=== PATIENT | female | born 1950 | race Caucasian/White ===

== ENCOUNTER 2019-05-23 10:47 | Emergency (ER) | payer OTHER ==
--- OUTSIDE RECORDS SUMMARY | 2019-05-23 10:50 | XMS REPORT | Continuity of Care Document ---
:1950 Author Organization [facility] [employer] Care Team Providers Name Role Phone [employer] Unavailable Unavailable Problems No Data Provided for This Section Medications No Data Provided for This Section Allergies, Adverse Reactions, Alerts No Known Medication Allergies Immunizations No Data Provided for This Section Results No Data Provided for This Section Pathology Reports No Data Provided for This Section Diagnostic Reports No Data Provided for This Section Consultation Notes No Data Provided for This Section Discharge Summaries No Data Provided for This Section History and Physicals No Data Provided for This Section Vital Signs No Data Provided for This Section Encounters Location Location Encounter Encounter Reason Attending ADM DC Status Source Details Type Number For Provider Date Date Visit Outpatient [id number] [place] 08/12 Active [facility] [place] Procedures No Data Provided for This Section Assessment and Plan No Data Provided for This Section Plan of Care No Data Provided for This Section Social History No Data Provided for This Section Family History No Data Provided for This Section Advance Directives No Data Provided for This Section Functional Status No Data Provided for This Section
--- NOTE | 2019-05-23 12:14 | RAD REPORT ---
EXAM DESCRIPTION: US - Extremity Venous Uni Ltd - 05/23/2019 12:05 pm CLINICAL HISTORY: Left leg pain and swelling COMPARISON: None. TECHNIQUE: Real-time sonographic evaluation of the left lower extremity deep venous system was perfo rmed. FINDINGS: Normal compressibility, flow augmentation, phasic flow and spontaneous flow are identified in the left lower extremity common femoral, superficial femoral, popliteal and posterior tibial vein s. No intraluminal filling defects seen. IMPRESSION: No DVT in the left lower extremity.
[2019-05-23 13:47] LABS: Absolute Lymphocytes (CBC) 2.4 K/uL (0.7-4.9); Basophils % 2.7 % (0-1.3); Hematocrit 39.1 % (36.0-45.0); Lymphocytes % 26.4 % (15.3-44.8); MPV 7.5 fL (7.6-11.3); RBC Red Blood Cell Count 4.51 M/uL (3.86-4.86)
[2019-05-23 14:00] LABS: Potassium 4.1 mmol/L (3.5-5.1)
[2019-05-23] MEDS ORDERED: DIPHENHYDRAMINE 25 MG TAB/CAP ONE (14:33)
--- NOTE | 2019-05-23 18:34 | ER ---
Nurse's Notes [facility] Name: Sherrill Delgado Age: 68 yrs Sex: Female : 1950 Arrival Date: 05/23/2019 Time: 10:50 Bed 7 Private MD: Diagnosis: Left leg swelling, left lateral neck, shoulder, ankle paresthesia - chronic Presentation: 05/23 11:12 Presenting complaint: Patient states: "I went to my doctor a week ago for my neck aj1 hurting real bad and I was coughing. He listened to my chest and said I have pneumonia. He sent me home and called me in medicine. I took 5 of the pills but it made my legs start hurting. Now my left ankle is all swollen and it feels like there's bug crawling inside my legs" Reports that she has not had any SOB outside of what she normally has with COPD. Breath sound with wheezes. Transition of care: patient was not received from another setting of care. Onset of symptoms was April 2019. Risk Assessment: Do you want to hurt yourself or someone else? Patient reports no desire to harm self or others. Initial Sepsis Screen: Does the patient meet any 2 criteria? RR > 20 per min. HR > 90 bpm. Yes Does the patient have a suspected source of infection? No. Patient's initial sepsis screen is negative. Care prior to arrival: None. 11:12 Method Of Arrival: Ambulatory aj1 11:12 Acuity: MAYDA 3 aj1 Triage Assessment: 11:15 General: Appears in no apparent distress. uncomfortable, Behavior is calm, cooperative, aj1 appropriate for age. Pain: Complains of pain in left leg and neck. Neuro: Level of Consciousness is awake, alert, obeys commands. Cardiovascular: Patient's skin is warm and dry. Respiratory: Airway is patent Respiratory effort is even, unlabored, Respiratory pattern is regular, symmetrical. Historical: - Allergies: 11:15 Codeine; aj1 - PMHx: 11:15 COPD; aj1 - Immunization history:: Adult Immunizations up to date. - Ebola Screening: : Patient denies travel to an Ebola-affected area in the 21 days before illness onset. - Social history:: Smoking status: Patient/guardian denies using tobacco. Screenin:24 Abuse screen: Denies threats or abuse. Denies injuries from another. Nutritional hb screening: No deficits noted. Tuberculosis screening: No symptoms or risk factors identified. Fall Risk None identified. Assessment: 12:15 General: Appears in no apparent distress. Behavior is calm, cooperative. Pain: Denies hb pain. Neuro: Level of Consciousness is awake, alert, obeys commands, Oriented to person, place, time, situation. Cardiovascular: Capillary refill < 3 seconds Patient's skin is warm and dry. Respiratory: Airway is patent Respiratory effort is even, unlabored, Respiratory pattern is regular, symmetrical. GI: No signs and/or symptoms were reported involving the gastrointestinal system. : No signs and/or symptoms were reported regarding the genitourinary system. EENT: No signs and/or symptoms were reported regarding the EENT system. Derm: Skin is intact, is healthy with good turgor. Musculoskeletal: BLE swelling. 13:00 Reassessment: Patient appears in no apparent distress at this time. No changes from hb previously documented assessment. Patient and/or family updated on plan of care and expected duration. Pain level reassessed. Patient is alert, oriented x 3, equal unlabored respirations, skin warm/dry/pink. 14:00 Reassessment: Patient appears in no apparent distress at this time. Patient and/or hb family updated on plan of care and expected duration. Pain level reassessed. Patient is alert, oriented x 3, equal unlabored respirations, skin warm/dry/pink. Vital Signs: 11:15 BP 137 / 92; Pulse 115; Resp 24; Temp 98.7; Pulse Ox 95% on R/A; Weight 80.29 kg (R); aj1 Height 5 ft. 4 in. (162.56 cm) (R); Pain 9/10; 13:26 BP 179 / 96; Pulse 113; Resp 20; Pulse Ox 95% on R/A; sv 14:17 BP 163 / 94; Pulse 111; Resp 20; Pulse Ox 96% ; sv 11:15 Body Mass Index 30.38 (80.29 kg, 162.56 cm) aj1 ED Course: 10:50 Patient arrived in ED. mr 11:15 Triage completed. aj1 11:15 Arm band placed on. aj1 12:04 Bryon Tracy MD is Attending Physician. kdr 12:07 Ultrasound completed. hr 12:24 Patient has correct armband on for positive identification. Bed in low position. Call hb light in reach. Side rails up X 1. 13:12 US Extremity Venous Unilateral Ltd Sent. sv 13:17 Lashawn Rao, RN is Primary Nurse. hb 13:17 Inserted saline lock: 22 gauge in right antecubital area, using aseptic technique. hb Blood collected. 14:00 No provider procedures requiring assistance completed. IV discontinued, intact, hb bleeding controlled, No redness/swelling at site. Pressure dressing applied. Administered Medications: 14:39 Drug: Benadryl 25 mg Route: PO; hb 14:39 Follow up: Response: Medication administered at discharge. hb Outcome: 14:00 Discharged to home ambulatory, with family. hb 14:00 Condition: stable 14:00 Discharge instructions given to patient, Instructed on discharge instructions, follow up and referral plans. medication usage, Demonstrated understanding of instructions, follow-up care, medications, Prescriptions given X 1. 14:20 Discharge ordered by MD. kdr 14:40 Patient left the ED. hb Signatures: Suellen Herbert RN RN aj1 Freida Coon RN RN sv Rittger, Kevin, MD MD kdr Rivera, Mary mr Abe, Tena Lashawn Rao, RN RN hb
--- NOTE | 2019-05-23 18:34 | EDPHYS ---
Physician Documentation [facility] Name: Sherrill Delgado Age: 68 yrs Sex: Female : 1950 Arrival Date: 05/23/2019 Time: 10:50 Bed 7 Private MD: ED Physician Bryon Tracy HPI: 05/23 14:50 This 68 yrs old Female presents to ER via Ambulatory with complaints of Leg kdr Swelling, Neck Problem. 14:51 The patient states that for about a month, she has had tingling (feels like hugs) in he kdr left ankle land left lateral neck. It come and goes in terms of intensity and sometimes keep her up at night. Especially the discomfort in her neck keeps her awake at night. She denies any injury or other precipitating event. She had seen Dr. Clark since onset and was diagnosed with pneumonia at the time and told to take Ibuprofen for her discomfort. She was also told to come back after she recovered from the pneumonia to this problem addressed if it still persisted. She tried to go to Dr. Clark office today but they were unable to see her so she came to the ED. Her s/s are not changing over time nut simply persist. She denies any other problems or associated symptoms. Onset: The symptoms/episode began/occurred gradually, 1 month(s) ago. Severity of symptoms: At their worst the symptoms were mild in the emergency department the symptoms are unchanged. The patient has not experienced similar symptoms in the past. The patient has been recently seen by a physician: the patient's primary care provider. Historical: - Allergies: 11:15 Codeine; aj1 - PMHx: 11:15 COPD; aj1 - Immunization history:: Adult Immunizations up to date. - Ebola Screening: : Patient denies travel to an Ebola-affected area in the 21 days before illness onset. - Social history:: Smoking status: Patient/guardian denies using tobacco. ROS: 14:51 Constitutional: Negative for fever, chills, and weight loss, Eyes: Negative for injury, kdr pain, redness, and discharge, ENT: Negative for injury, pain, and discharge, Neck: Negative for injury, pain, and swelling, Cardiovascular: Negative for chest pain, palpitations, and edema, Respiratory: Negative for shortness of breath, cough, wheezing, and pleuritic chest pain, Abdomen/GI: Negative for abdominal pain, nausea, vomiting, diarrhea, and constipation, Back: Negative for injury and pain, : Negative for injury, bleeding, discharge, and swelling, MS/Extremity: Negative for injury and deformity, Skin: Negative for injury, rash, and discoloration, Psych: Negative for depression, anxiety, suicide ideation, homicidal ideation, and hallucinations, Allergy/Immunology: Negative for hives, rash, and allergies, Endocrine: Negative for neck swelling, polydipsia, polyuria, polyphagia, and marked weight changes, Hematologic/Lymphatic: Negative for swollen nodes, abnormal bleeding, and unusual bruising. 14:51 MS/extremity: Positive for swelling, of the left leg. 14:51 Neuro: Positive for tingling, of the scalp, left trapezius, left lateral ankle and lateral aspect of left foot. Exam: 14:51 Constitutional: This is a well developed, well nourished patient who is awake, alert, kdr and in no acute distress. Head/Face: Normocephalic, atraumatic. Eyes: Pupils equal round and reactive to light, extra-ocular motions intact. Lids and lashes normal. Conjunctiva and sclera are non-icteric and not injected. Cornea within normal limits. Periorbital areas with no swelling, redness, or edema. Neck: Trachea midline, no thyromegaly or masses palpated, and no cervical lymphadenopathy. Supple, full range of motion without nuchal rigidity, or vertebral point tenderness. No Meningismus. Chest/axilla: Normal chest wall appearance and motion. Nontender with no deformity. No lesions are appreciated. Cardiovascular: Regular rate and rhythm with a normal S1 and S2. No gallops, murmurs, or rubs. Normal PMI, no JVD. No pulse deficits. Respiratory: Lungs have equal breath sounds bilaterally, clear to auscultation and percussion. No rales, rhonchi or wheezes noted. No increased work of breathing, no retractions or nasal flaring. Abdomen/GI: Soft, non-tender, with normal bowel sounds. No distension or tympany. No guarding or rebound. No evidence of tenderness throughout. Back: No spinal tenderness. No costovertebral tenderness. Full range of motion. Skin: Warm, dry with normal turgor. Normal color with no rashes, no lesions, and no evidence of cellulitis. MS/ Extremity: Pulses equal, no cyanosis. Neurovascular intact. Full, normal range of motion. Neuro: Awake and alert, GCS 15, oriented to person, place, time, and situation. Cranial nerves II-XII grossly intact. Motor strength 5/5 in all extremities. Sensory grossly intact. Cerebellar exam normal. Normal gait. The patient had no defineable neuro deficit Psych: Awake, alert, with orientation to person, place and time. Behavior, mood, and affect are within normal limits. Vital Signs: 11:15 BP 137 / 92; Pulse 115; Resp 24; Temp 98.7; Pulse Ox 95% on R/A; Weight 80.29 kg (R); aj1 Height 5 ft. 4 in. (162.56 cm) (R); Pain 9/10; 13:26 BP 179 / 96; Pulse 113; Resp 20; Pulse Ox 95% on R/A; sv 14:17 BP 163 / 94; Pulse 111; Resp 20; Pulse Ox 96% ; sv 11:15 Body Mass Index 30.38 (80.29 kg, 162.56 cm) aj MDM: 14:20 Patient medically screened. kdr 14:51 Data reviewed: vital signs, nurses notes, lab test result(s), radiologic studies. kdr Counseling: I had a detailed discussion with the patient and/or guardian regarding: the historical points, exam findings, and any diagnostic results supporting the discharge/admit diagnosis, lab results, radiology results, the need for outpatient follow up. 05/23 12:51 Order name: CBC with Diff kdr 05/23 12:51 Order name: Chem 7 kdr 05/23 11:18 Order name: Extremity Venous Unilateral Ltd [facility][1] Administered Medications: 14:39 Drug: Benadryl 25 mg Route: PO; hb 14:39 Follow up: Response: Medication administered at discharge. hb Disposition: 05/23/19 14:20 Discharged to Home. Impression: Left leg swelling, left lateral neck, shoulder, ankle paresthesia - chronic. - Condition is Stable. - Discharge Instructions: Paresthesia, [id number]. - Prescriptions for Benadryl 25 mg Oral Capsule - take 1 capsule by ORAL route every 6 hours As needed; 30 tablet. - Medication Reconciliation Form, Thank You Letter form. - Follow up: Private Physician; When: 2 - 3 days; Reason: If symptoms return, Further diagnostic work-up, Recheck today's complaints, Continuance of care, Re-evaluation by your physician. - Problem is an ongoing problem. - Symptoms are unchanged. Signatures: Dispatcher [employer] EDMS Suellen Herbert RN RN aj1 Freida Coon RN RN sv Bryon Tracy MD MD [facility] Lashawn Rao RN RN Corrections: (The following items were deleted from the chart) 14:39 14:20 05/23/2019 14:20 Discharged to Home. Impression: Left leg swelling, left lateral hb neck, shoulder, ankle paresthesia - chronic. Condition is Stable. Forms are Medication Reconciliation Form, Thank You Letter, Antibiotic Education, Prescription Opioid Use. Follow up: Private Physician; When: 2 - 3 days; Reason: If symptoms return, Further diagnostic work-up, Recheck today's complaints, Continuance of care, Re-evaluation by your physician. Problem is an ongoing problem. Symptoms are unchanged. [facility] 14:40 14:39 05/23/2019 14:20 Discharged to Home. Impression: Left leg swelling, left lateral hb neck, shoulder, ankle paresthesia - chronic. Condition is Stable. Discharge Instructions: Paresthesia, Ujoy-he-Skie. Prescriptions for Benadryl 25 mg Oral Capsule - take 1 capsule by ORAL route every 6 hours As needed; 30 tablet. and Forms are Medication Reconciliation Form, Thank You Letter. Follow up: Private Physician; When: 2 - 3 days; Reason: If symptoms return, Further diagnostic work-up, Recheck today's complaints, Continuance of care, Re-evaluation by your physician. Problem is an ongoing problem. Symptoms are unchanged. hb
[2019-05-23 19:34] VITALS: TEMP 98.7
[2019-05-23 19:36] VITALS: BP 163/94; O2SAT 96
== END 2019-05-23 14:40 | disposition home or self-care (01) ==
LOC: ER 10:47
DX: R20.2 Paresthesia of skin (principal); Z88.6 Allergy status to analgesic agent
CPT/HCPCS: 36415; 80048; 85025; 93971; 99284

== ENCOUNTER 2019-08-15 10:16 | Inpatient (IN) | payer OTHER ==
[2019-08-15] MEDS ORDERED: NA CHLORIDE 0.9% 1,000 ML ONE ×2 (10:49→12:49)
[2019-08-15] MEDS ORDERED: predniSONE 20 MG TAB ONE (10:49)
[2019-08-15] MEDS ORDERED: ALBUTEROL 2.5 MG/3 ML NEB SOL ONE (10:52)
[2019-08-15] MEDS ORDERED: IPRATROPIUM BROM 0.5MG/2.5ML ONE (10:52)
[2019-08-15 11:24] LABS: Absolute Lymphocytes (CBC) 1.2 K/uL (0.7-4.9); RBC Red Blood Cell Count 4.69 M/uL (3.86-4.86)
--- NOTE | 2019-08-15 11:36 | RAD REPORT ---
EXAM DESCRIPTION: Mickey Single View08/15/2019 11:20 am CLINICAL HISTORY: sob COMPARISON: 2014 FINDINGS: The lungs are hyperaerated The lungs appear clear of acute infiltrate. The heart is normal size IMPRESSION: COPD without visualization acute abnormality
[2019-08-15 11:37] LABS: Basophils % 0.4 % (0-1.3); Hematocrit 40.8 % (36.0-45.0); Lymphocytes % 5.8 % (15.3-44.8); MPV 7.9 fL (7.6-11.3)
[2019-08-15 11:42] LABS: Albumin 3.6 g/dL (3.4-5.0); Bilirubin Direct 0.2 mg/dL (0-0.2); Bilirubin Total 0.8 mg/dL (0.2-1.0); Potassium 3.8 mmol/L (3.5-5.1); Protein, Total 7.9 g/dL (6.4-8.2)
--- NOTE | 2019-08-15 12:17 | RAD REPORT ---
EXAM DESCRIPTION: CT - Chest For Pe Angio - 08/15/2019 12:05 pm CLINICAL HISTORY: SOB SOB epigastric pain, flank pain, COPD COMPARISON: CT chest October 2018, chest film August 15, 2019 TECHNIQUE: Dynamically enhanced 3 mm thick images of the chest were obtained during administration o f approximately 150mL Isovue 370 IV contrast. Coronal and oblique MIP reconstruction images were gene rated and reviewed. Exam utilizes a protocol to evaluate the pulmonary arterial tree. All CT scans are performed using dose optimization technique as appropriate and may include automated exposure control or mA/KV adjustment according to patient size. FINDINGS: No pulmonary emboli are identified. The aorta as imaged shows no acute or suspicious finding. No pericardial thickening or effusion. No suspicious lung parenchymal process. No suspicious infiltrate or mass. A small 5 mm nodule in the posterior lower left lobe has not change from October 2018. No pleural effusion or pleural thickenin g. No mediastinal or hilar suspicious masses. No chest wall masses or abnormal axillary lymphadenopathy. Patient has dense for age breast parenchymal pattern. This is symmetric and stable. IMPRESSION: No pulmonary emboli identified. No other significant or suspicious findings.
--- NOTE | 2019-08-15 12:22 | RAD REPORT ---
EXAM DESCRIPTION: CT - Abdomen Pelvis W Contrast - 08/15/2019 12:01 pm CLINICAL HISTORY: Abdominal pain COMPARISON: none. TECHNIQUE: Computed axial tomography of the abdomen pelvis was obtained. 100 cc Isovue-300 was admin istered intravenously. Oral contrast was not requested which limits evaluation of bowel. All CT scans are performed using dose optimization technique as appropriate and may include automated exposure control or mA/KV adjustment according to patient size. FINDINGS: Some of the images are degraded by patient motion artifact. The gallbladder is distended. Gallbladder wall appears borderline thickened. Mild fatty infiltration liver Spleen, pancreas, adrenal and left kidney appear unremarkable. An 11 millimeter low to intermediate d ensity mass within right kidney suspected. . Right renal cortical thinning may be secondary to prior inflammation There is no evidence of diverticulitis. Hysterectomy IMPRESSION: Gallbladder distention with borderline gallbladder wall thickening likely indicating pat hology. Ultrasound is recommended. 11 millimeter right renal mass does not represent a simple cyst. Ultrasound recommended
[2019-08-15] MEDS ORDERED: PIPER/TAZO/NS 3.375gm 3.375 GM/100 ML BAG ONE (12:43)
[2019-08-15 12:49] LABS: Blood Morphology Comment NOT SEEN (NOT SEEN); Platelet Estimate ADEQ
--- NOTE | 2019-08-15 14:12 | EKG ---
Test Date: 2019-08-15 Test Time: 13:05:58 Hospital Aide: ALYSSA MEASUREMENT RESULTS: Intervals: Rate: 110 CT: 168 QRSD: 132 QT: 364 QTc: 492 [place]: P: 79 CT: 168 QRS: -54 T: 99 INTERPRETIVE STATEMENTS: Sinus tachycardia Left axis deviation Left bundle branch block Abnormal ECG Compared to ECG 10/01/2012 10:48:45 Left-axis deviation now present Fusion complex(es) no longer present Electronically Signed On 08-15-19 14:11:32 H[employer] OPENER by Dave Russell
--- NOTE | 2019-08-15 14:23 | RAD REPORT ---
EXAM DESCRIPTION: US - Abdomen Exam Limited - 08/15/2019 1:35 pm CLINICAL HISTORY: RUQ pain COMPARISON: Abdomen Pelvis W Contrast dated 08/15/2019 FINDINGS: Gallbladder is distended. Several gallstones are present up to 2 cm in size. Wall thickeni ng is present with pericholecystic fluid. Gallbladder findings match the CT. Common bile duct is norm al with no common duct stone identified. IMPRESSION: Multi stone cholelithiasis with wall thickening and pericholecystic fluid. Findings are suspicious for acute cholecystitis and need correlation with clinical presentation. No biliary tree dilatation.
--- NOTE | 2019-08-15 14:32 | ER ---
Nurse's Notes [facility] Name: Sherrill Delgado Age: 68 yrs Sex: Female : 1950 Arrival Date: 08/15/2019 Time: 10:18 Bed 5 Private MD: Diagnosis: Cholecystitis Presentation: 08/15 10:23 Presenting complaint: Patient states: I have been having epigastric pain and right la1 sided flank pain that goes to my back for the last few days. Transition of care: patient was not received from another setting of care. Onset of symptoms was August 15, 2019. Risk Assessment: Do you want to hurt yourself or someone else? Patient reports no desire to harm self or others. Initial Sepsis Screen: Does the patient meet any 2 criteria? RR > 20 per min. HR > 90 bpm. Does the patient have a suspected source of infection? No. Patient's initial sepsis screen is negative. Care prior to arrival: None. 10:23 Method Of Arrival: Wheelchair la1 10:23 Acuity: MAYDA 3 la1 Historical: - Allergies: 10:22 Codeine; la1 - PMHx: 10:22 COPD; la1 - Immunization history:: Adult Immunizations up to date. - Social history:: Smoking status: Patient/guardian denies using tobacco, the patient reports quitting approximately 5 years ago. - Ebola Screening: : No symptoms or risks identified at this time. Screenin:01 Abuse screen: Denies threats or abuse. Nutritional screening: No deficits noted. tw2 Tuberculosis screening: No symptoms or risk factors identified. Fall Risk None identified. Assessment: 10:30 General: Appears in no apparent distress. Behavior is calm, cooperative, appropriate tw2 for age. Pain: Complains of pain in epigastric area Pain radiates to back. Neuro: Level of Consciousness is awake, alert, obeys commands, Oriented to person, place, time, situation. Cardiovascular: Heart tones S1 S2 Patient's skin is warm and dry. Respiratory: Airway is patent Respiratory effort is even, unlabored, Respiratory pattern is regular, symmetrical, Breath sounds are clear bilaterally. GI: Abdomen is flat, Bowel sounds present X 4 quads. : No signs and/or symptoms were reported regarding the genitourinary system. EENT: No signs and/or symptoms were reported regarding the EENT system. Derm: No signs and/or symptoms reported regarding the dermatologic system. Musculoskeletal: Range of motion: intact in all extremities. 11:43 Reassessment: Patient appears in no apparent distress at this time. No changes from tw2 previously documented assessment. Patient and/or family updated on plan of care and expected duration. Pain level reassessed. Patient is alert, oriented x 3, equal unlabored respirations, skin warm/dry/pink. 13:02 Reassessment: Patient appears in no apparent distress at this time. No changes from tw2 previously documented assessment. Patient and/or family updated on plan of care and expected duration. Pain level reassessed. Patient is alert, oriented x 3, equal unlabored respirations, skin warm/dry/pink. 14:03 Reassessment: Patient appears in no apparent distress at this time. No changes from tw2 previously documented assessment. Patient and/or family updated on plan of care and expected duration. Pain level reassessed. Patient is alert, oriented x 3, equal unlabored respirations, skin warm/dry/pink. 14:56 Reassessment: Patient appears in no apparent distress at this time. No changes from tw2 previously documented assessment. Patient and/or family updated on plan of care and expected duration. Pain level reassessed. Patient is alert, oriented x 3, equal unlabored respirations, skin warm/dry/pink. 16:00 Reassessment: Patient appears in no apparent distress at this time. No changes from tw2 previously documented assessment. Patient and/or family updated on plan of care and expected duration. Pain level reassessed. Patient is alert, oriented x 3, equal unlabored respirations, skin warm/dry/pink. 17:00 Reassessment: Patient appears in no apparent distress at this time. No changes from tw2 previously documented assessment. Patient and/or family updated on plan of care and expected duration. Pain level reassessed. Patient is alert, oriented x 3, equal unlabored respirations, skin warm/dry/pink. 18:04 Reassessment: Patient appears in no apparent distress at this time. No changes from tw2 previously documented assessment. Patient and/or family updated on plan of care and expected duration. Pain level reassessed. Patient is alert, oriented x 3, equal unlabored respirations, skin warm/dry/pink. 18:36 Reassessment: Patient appears in no apparent distress at this time. No changes from tw2 previously documented assessment. Patient and/or family updated on plan of care and expected duration. Pain level reassessed. Patient is alert, oriented x 3, equal unlabored respirations, skin warm/dry/pink. 19:24 General: Appears in no apparent distress. Behavior is calm, cooperative. Pain: Denies bb pain. Neuro: Level of Consciousness is awake, alert, obeys commands, Oriented to person, place, time, situation. Cardiovascular: Heart tones S1 S2 present Capillary refill < 3 seconds Patient's skin is warm and dry. Respiratory: Airway is patent Respiratory effort is even, unlabored, Respiratory pattern is regular. GI: Abdomen is non-distended. Derm: Skin is pink, warm \T\ dry. Musculoskeletal: Circulation, motion, and sensation intact. Vital Signs: 10:22 BP 152 / 70; Pulse 113; Resp 32; Temp 97.8; Pulse Ox 94% on R/A; Weight 80.29 kg; la1 Height 5 ft. 3 in. (160.02 cm); 11:44 BP 117 / 104; Pulse 107; Resp 28; Pulse Ox 94% on R/A; tw2 12:41 BP 133 / 59; Pulse 107; Resp 28; Pulse Ox 93% ; sv 13:02 BP 164 / 64; Pulse 110; Resp 17; Pulse Ox 96% on R/A; tw2 14:03 BP 152 / 63; Pulse 101; Resp 19; Pulse Ox 95% ; tw2 14:57 BP 157 / 73; Pulse 102; Resp 17; Pulse Ox 95% on R/A; tw2 15:58 BP 163 / 67; Pulse 94; Resp 17; Pulse Ox 94% on R/A; tw2 16:58 BP 160 / 72; Pulse 91; Resp 20; Pulse Ox 95% on R/A; tw2 17:58 BP 156 / 83; Pulse 93; Resp 17; Pulse Ox 94% on R/A; tw2 18:36 BP 151 / 60; Pulse 102; Resp 20; Pulse Ox 95% on R/A; tw2 19:25 BP 154 / 67; Pulse 98; Resp 16 S; Temp 98.6(O); Pulse Ox 95% on R/A; bb 10:22 Body Mass Index 31.35 (80.29 kg, 160.02 cm) la1 ED Course: 10:18 Patient arrived in ED. as 10:23 Arm band placed on left wrist. la1 10:24 Triage completed. la1 10:24 Bed in low position. Call light in reach. Adult w/ patient. tw2 10:26 Hari Rodriguez, RISA is PHCP. pm1 10:26 Jaxon Petty MD is Attending Physician. pm1 11:00 Initial lab(s) drawn, by me, sent to lab. Inserted saline lock: 20 gauge in left sg antecubital area, using aseptic technique. Blood collected. 11:00 Missed attempt(s): 20 gauge in right upper arm. Bleeding controlled, band aid applied, sg catheter tip intact. 11:01 Uma Stevenson RN is Primary Nurse. tw2 11:21 Chest Single View XRAY In Process Unspecified. EDMS 12:01 CT Abd/Pelvis - IV Contrast Only In Process Unspecified. EDMS 12:01 Chest For PE Angio CT In Process Unspecified. EDMS 13:14 EKG done, by icu tech. reviewed by Hari Rodriguez NP. at1 13:35 US Abdomen Limited In Process Unspecified. EDMS 14:30 Flip Virgen DO is Hospitalizing Provider. pm1 19:02 Report given to KINGSTON Rodriguez and KINGSTON Shook. tw2 19:26 No provider procedures requiring assistance completed. IV is patent, is intact. bb 19:26 Patient admitted, IV remains in place. bb Administered Medications: 11:05 Drug: predniSONE 60 mg Route: PO; tw2 11:43 Follow up: Response: No adverse reaction tw2 11:08 Drug: Albuterol - atroVENT (3:1) (2.5 mg - 0.5 mg) 3 ml Route: Nebulizer; tw2 12:40 Follow up: Response: No adverse reaction tw2 11:08 Drug: NS 0.9% 1000 ml Route: IV; Rate: 1000 ml; Site: left antecubital; tw2 11:44 Follow up: Response: No adverse reaction; IV Status: Completed infusion; IV Intake: tw2 1000ml 13:01 Drug: Zosyn 3.375 grams Route: IVPB; Infused Over: 60 mins; Site: left antecubital; tw2 14:03 Follow up: Response: No adverse reaction; IV Status: Completed infusion tw2 13:01 Drug: NS 0.9% 1000 ml Route: IV; Rate: 100 ml/hr; Site: left antecubital; tw2 Intake: 11:44 IV: 1000ml; Total: 1000ml. tw2 Outcome: 14:32 Decision to Hospitalize by Provider. pm1 19:26 Instructed on the need for admit. bb 19:26 Condition: stable bb 20:04 Patient left the ED. fc Signatures: Dispatcher [employer] Freida Narvaez, RN Erwin Chang RN KINGSTON sg Karma Espana RN RN Lore Leslie Brenda, RN RN bb Rosy Gallegos, bending machine operator EKG Tat1 Timo Luna RN RN la1 Hari Rodriguez, BANDER HAND BANDER HAND pm1 Uma Stevenson RN RN tw2 Corrections: (The following items were deleted from the chart) 16:31 11:44 BP 117 / 104; Pulse 107bpm; Resp 28bpm; Pulse Ox 97% RA; tw2 tw2
--- NOTE | 2019-08-15 14:32 | EDPHYS ---
Physician Documentation [facility] Name: Sherrill Delgado Age: 68 yrs Sex: Female : 1950 Arrival Date: 08/15/2019 Time: 10:18 Bed 5 Private MD: ED Physician Jaxon Petty HPI: 08/15 11:36 This 68 yrs old Female presents to ER via Wheelchair with complaints of pm1 Abdominal pain, Right Flank Pain. 11:36 The patient presents with abdominal pain in the right upper quadrant. Onset: The pm1 symptoms/episode began/occurred 3 day(s) ago. The symptoms radiate to right back. Associated signs and symptoms: Pertinent negatives: nausea, vomiting, and diarrhea, chest pain, dysuria, fever, shortness of breath, Cough. The symptoms are described as sharp. Modifying factors: The symptoms are alleviated by nothing, the symptoms are aggravated by nothing. Severity of pain: in the emergency department the pain has improved. The patient has not experienced similar symptoms in the past. Patient reports no sensation of shortness of breath but feels that she is working a little more to breath. History of COPD. Yesterday last breathing treatment. Historical: - Allergies: 10:22 Codeine; la1 - PMHx: 10:22 COPD; la1 - Immunization history:: Adult Immunizations up to date. - Social history:: Smoking status: Patient/guardian denies using tobacco, the patient reports quitting approximately 5 years ago. - Ebola Screening: : No symptoms or risks identified at this time. ROS: 11:36 Constitutional: Negative for fever, chills, and weight loss, Eyes: Negative for injury, pm1 pain, redness, and discharge, ENT: Negative for injury, pain, and discharge, Neck: Negative for injury, pain, and swelling, Cardiovascular: Negative for chest pain, palpitations, and edema. 11:36 : Negative for injury, bleeding, discharge, and swelling, MS/Extremity: Negative for injury and deformity, Skin: Negative for injury, rash, and discoloration, Neuro: Negative for headache, weakness, numbness, tingling, and seizure. 11:36 Respiratory: Negative for cough, shortness of breath. 11:36 Abdomen/GI: Positive for abdominal pain, of the right upper quadrant, Negative for nausea, vomiting, and diarrhea, constipation. 11:36 Back: Positive for flank pain, on the right. Exam: 11:36 Constitutional: This is a well developed, well nourished patient who is awake, alert, pm1 and in no acute distress. Head/Face: Normocephalic, atraumatic. Eyes: Pupils equal round and reactive to light, extra-ocular motions intact. Lids and lashes normal. Conjunctiva and sclera are non-icteric and not injected. Cornea within normal limits. Periorbital areas with no swelling, redness, or edema. ENT: Nares patent. No nasal discharge, no septal abnormalities noted. Tympanic membranes are normal and external auditory canals are clear. Oropharynx with no redness, swelling, or masses, exudates, or evidence of obstruction, uvula midline. Mucous membranes moist. Neck: Trachea midline, no thyromegaly or masses palpated, and no cervical lymphadenopathy. Supple, full range of motion without nuchal rigidity, or vertebral point tenderness. No Meningismus. Chest/axilla: Normal chest wall appearance and motion. Nontender with no deformity. No lesions are appreciated. Cardiovascular: Regular rate and rhythm with a normal S1 and S2. No gallops, murmurs, or rubs. Normal PMI, no JVD. No pulse deficits. 11:36 Back: No spinal tenderness. No costovertebral tenderness. Full range of motion. Skin: Warm, dry with normal turgor. Normal color with no rashes, no lesions, and no evidence of cellulitis. MS/ Extremity: Pulses equal, no cyanosis. Neurovascular intact. Full, normal range of motion. 11:36 Respiratory: the patient does not display signs of respiratory distress, Breath sounds: wheezing: Respiratory rate: 30 11:36 Abdomen/GI: Inspection: obese Bowel sounds: normal, Palpation: mild abdominal tenderness, in the right upper quadrant and left lower quadrant, mass, is not appreciated, rebound tenderness, is not appreciated. 11:36 Back: pain, that is mild, of the right low back, normal spinal alignment noted, vertebral tenderness, is not appreciated. 11:36 Neuro: Orientation: is normal, Motor: is normal, moves all fours. Vital Signs: 10:22 BP 152 / 70; Pulse 113; Resp 32; Temp 97.8; Pulse Ox 94% on R/A; Weight 80.29 kg; la1 Height 5 ft. 3 in. (160.02 cm); 11:44 BP 117 / 104; Pulse 107; Resp 28; Pulse Ox 94% on R/A; tw2 12:41 BP 133 / 59; Pulse 107; Resp 28; Pulse Ox 93% ; sv 13:02 BP 164 / 64; Pulse 110; Resp 17; Pulse Ox 96% on R/A; tw2 14:03 BP 152 / 63; Pulse 101; Resp 19; Pulse Ox 95% ; tw2 14:57 BP 157 / 73; Pulse 102; Resp 17; Pulse Ox 95% on R/A; tw2 15:58 BP 163 / 67; Pulse 94; Resp 17; Pulse Ox 94% on R/A; tw2 16:58 BP 160 / 72; Pulse 91; Resp 20; Pulse Ox 95% on R/A; tw2 17:58 BP 156 / 83; Pulse 93; Resp 17; Pulse Ox 94% on R/A; tw2 18:36 BP 151 / 60; Pulse 102; Resp 20; Pulse Ox 95% on R/A; tw2 19:25 BP 154 / 67; Pulse 98; Resp 16 S; Temp 98.6(O); Pulse Ox 95% on R/A; bb 10:22 Body Mass Index 31.35 (80.29 kg, 160.02 cm) la1 MDM: 10:26 Patient medically screened. pm1 12:10 Data reviewed: vital signs. Data interpreted: Pulse oximetry: on room air is 97 %. pm1 Interpretation: normal. 14:29 Counseling: I had a detailed discussion with the patient and/or guardian regarding: the pm1 historical points, exam findings, and any diagnostic results supporting the discharge/admit diagnosis, lab results, radiology results, the need for further work-up and treatment in the hospital. 14:35 Physician consultation: Evan Luciano MD was called at 14:35, was contacted at 14:35, pm1 regarding consult, patient's condition, and will see patient tomorrow, NPO now. Admit to hospitalist. 14:43 Physician consultation: Discussed case with Dr. Hilton and he will see the patient. pm1 08/15 10:32 Order name: Basic Metabolic Panel; Complete Time: 12:04 pm1 08/15 10:32 Order name: CBC with Diff; Complete Time: 12:51 pm1 11/21 10:32 Order name: Creatinine for Radiology; Complete Time: 12:04 pm1 08/15 10:32 Order name: Hepatic Function; Complete Time: 12:04 pm1 08/15 10:32 Order name: Lipase; Complete Time: 12:04 pm1 08/15 12:50 Order name: Manual Differential; Complete Time: 12:51 EDMS 08/15 17:05 Order name: Basic Metabolic Panel EDMS 08/15 17:05 Order name: Basic Metabolic Panel EDMS 08/15 17:06 Order name: Magnesium EDMS 08/15 17:06 Order name: Magnesium EDMS 08/15 17:06 Order name: Phosphorus EDMS 08/15 17:06 Order name: Phosphorus EDMS 08/15 17:06 Order name: Protime (+INR) EDMS 08/15 17:06 Order name: Protime (+INR) EDMS 08/15 10:32 Order name: IV Saline Lock; Complete Time: 11:08 pm1 08/15 10:32 Order name: Labs collected and sent; Complete Time: 11:08 pm1 08/15 10:32 Order name: CT Abd/Pelvis - IV Contrast Only; Complete Time: 12:24 pm1 08/15 10:32 Order name: Chest Single View XRAY; Complete Time: 11:41 pm1 08/15 10:32 Order name: Chest For PE Angio CT; Complete Time: 12:24 pm1 08/15 12:24 Order name: US Abdomen Limited; Complete Time: 14:25 pm1 08/15 12:45 Order name: EKG; Complete Time: 12:45 pm1 08/15 17:05 Order name: CONS Physician Consult EDMS 08/15 17:06 Order name: PTT, Activated Partial Thromb EDMS 08/15 17:06 Order name: PTT, Activated Partial Thromb EDMS 08/15 17:06 Order name: Regular EDMS 08/15 12:45 Order name: NPO; Complete Time: 13:01 pm1 08/15 12:45 Order name: EKG - Nurse/Tech; Complete Time: 14:03 pm1 Administered Medications: 11:05 Drug: predniSONE 60 mg Route: PO; tw2 11:43 Follow up: Response: No adverse reaction tw2 11:08 Drug: Albuterol - atroVENT (3:1) (2.5 mg - 0.5 mg) 3 ml Route: Nebulizer; tw2 12:40 Follow up: Response: No adverse reaction tw2 11:08 Drug: NS 0.9% 1000 ml Route: IV; Rate: 1000 ml; Site: left antecubital; tw2 11:44 Follow up: Response: No adverse reaction; IV Status: Completed infusion; IV Intake: tw2 1000ml 13:01 Drug: Zosyn 3.375 grams Route: IVPB; Infused Over: 60 mins; Site: left antecubital; tw2 14:03 Follow up: Response: No adverse reaction; IV Status: Completed infusion tw2 13:01 Drug: NS 0.9% 1000 ml Route: IV; Rate: 100 ml/hr; Site: left antecubital; tw2 Disposition: 08/15/19 14:32 Hospitalization ordered by Flip Virgen for Observation. Preliminary diagnosis is Cholecystitis. - Bed requested for Telemetry/MedSurg (observation). - Status is Observation. fc - Condition is Stable. - Problem is new. - Symptoms have improved. UTI on Admission? No Addendum: 08/21/2019 08:02 Co-signature as Attending Physician, Flip Virgen DO I agree with the assessment and r n plan of care. Signatures: Dispatcher [employer] Karma Bender, RN RN Jaxon Petty MD MD rn Attema, Lee RN RN la1 Hari Rodriguez, AEROSOL LINE OPERATOR AEROSOL LINE OPERATOR pm1 Uma Stevenson RN RN tw2 Ladan Valencia Corrections: (The following items were deleted from the chart) 08/15 14:46 14:35 Physician consultation: Evan Luciano MD was called at 14:35, was contacted at pm1 14:35, regarding consult, patient's condition, and will see patient tomorrow, NPO now, pm1 15:52 14:32 Hospitalization Ordered by Flip Virgen DO for Observation. Preliminary eb diagnosis is Cholecystitis. Bed requested for Telemetry/MedSurg (observation). Status is Observation. Condition is Stable. Problem is new. Symptoms have improved. UTI on Admission? No. pm1 18:22 15:52 08/15/2019 14:32 Hospitalization Ordered by Flip Virgen DO for Observation. eb Preliminary diagnosis is Cholecystitis. Bed requested for Telemetry/MedSurg (observation). Status is Observation. Condition is Stable. Problem is new. Symptoms have improved. UTI on Admission? No. eb 20:04 18:22 08/15/2019 14:32 Hospitalization Ordered by Flip Virgen DO for Observation. fc Preliminary diagnosis is Cholecystitis. Bed requested for Telemetry/MedSurg (observation). Status is Observation. Condition is Stable. Problem is new. Symptoms have improved. UTI on Admission? No. eb
[2019-08-15] MEDS ORDERED: ONDANSETRON 4 MG/2 ML VIAL IV PRN (16:58)
[2019-08-15] MEDS ORDERED: ACETAMINOPHEN 500 MG TAB PO PRN (16:58)
[2019-08-15] MEDS ORDERED: MAGNESIUM HYDROXIDE 8% 30 ML PO PRN (16:58)
[2019-08-15] MEDS ORDERED: HYDRALAZINE HCL 20 MG/ML VIAL IV PRN (17:08)
[2019-08-15] MEDS: PIPER/TAZO/NS 3.375gm 3.375 GM/100 ML BAG IVPB SCH (18:00)
[2019-08-15] MEDS: ALBUTEROL 2.5 MG/3 ML NEB SOL NEB SCH (20:30)
[2019-08-15] MEDS: IPRATROPIUM BROM 0.5MG/2.5ML NEB SCH (20:30)
[2019-08-15] MEDS: ENOXAPARIN 40 MG/0.4 ML SQ SCH (21:00)
[2019-08-15] MEDS: NA CHLORIDE 0.9% 1,000 ML IV SCH (21:00)
[2019-08-15 21:09] VITALS: BMI 31.3
--- NOTE | 2019-08-15 21:17 | CON ---
Date of Consultation: 08/15/2019 Reason For Service: Acute cholecystitis, symptomatic cholelithiasis. History Of Present Illness: This is the case of a 68-year-old patient come to us with 3 days history of abdominal pain; anorexia; epigastric pain, radiating to the back associated with nausea and vomit ing. Today, she was not feeling better, so she decided to come to the ER, diagnosed with acute oriana cystitis and a surgical consult was obtained. She denies any dysuria, hematuria, hematochezia, or me evens. Denies any recent travelling out of the country. Denies any family member sick at home. She denies any history of hypertension, although right now blood pressures in the 160 systolic. She does not take any medication. Allergies: CODEINE. Medical History: COPD. Social History: She does not smoke. She does not drink alcohol. Family History: Noncontributory. Surgical History: She has a midline incision in the abdomen. She claimed that is hernia for reflux. Patient assuming this a hiatal hernia. Review of Systems: Ten points otherwise unremarkable. Physical Examination: General: Patient is awake and alert. HEENT: Pupils are equal and reactive, anicteric. Neck: Supple. Chest: Clear. Abdomen: Epigastric upper quadrant pain with Olmos sign positive. A midline incision present. Breasts: Deferred. Pelvic: Deferred. Rectal: Deferred. Extremities: Good capillary refill. Laboratory Data: Blood work shows WBC count of 20.3 with hemoglobin of 13.6, bicarb 27, potassium is 3.8, total bilirubin of 0.8. Imaging Data: Abdominal ultrasound shows cholelithiasis with wall thickening and perichol ecystic fluid, consistent with acute cholecystitis. CAT scan of abdomen and pelvis interpreted by Dr Romeo Licea as gallbladder distention with gallbladder thickening, right renal mass. Patient explained to discuss that with her urologist. Assessment: This is a 68-year-old patient with symptomatic cholelithiasis. Patient admitted to the primary doctor. They are going to check blood pressure on her and she is under control. She underst ands the options of laparoscopic, possible open cholecystectomy with benefits, alternatives, and risk s including, but not limited to infection, bleeding, damage to adjacent structures, anesthesia, compl ication, choledocholithiasis, bile leak, pancreatitis, OH, and even . She also understands this may not relieve any symptoms, she might need more than one surgical intervention. She also understa nds we may encounter some adhesions from previous surgeries in her abdomen. We may have to clear jaxon e of them. She understood. We are going to keep the patient n.p.o. . GABE/JOVITA Voice ID: [id number] Report ID: [id number]
[2019-08-15] MEDS: lisinopriL 10 MG TAB PO SCH (22:00)
[2019-08-16] MEDS: PIPER/TAZO/NS 3.375gm 3.375 GM/100 ML BAG IVPB SCH ×3 (01:09→17:52)
[2019-08-16] MEDS: IPRATROPIUM BROM 0.5MG/2.5ML NEB SCH ×4 (02:25→19:43)
[2019-08-16] MEDS: ALBUTEROL 2.5 MG/3 ML NEB SOL NEB SCH ×4 (02:25→19:43)
[2019-08-16] MEDS: NA CHLORIDE 0.9% 1,000 ML IV SCH ×4 (03:00→23:00)
[2019-08-16] MEDS: MORPHINE 2 MG/ML SYR IV PRN ×2 (03:01→08:14)
--- NOTE | 2019-08-16 03:42 | HP ---
Date of Admission: 08/15/2019 Chief Complaint: Abdominal pain. History Of Present Illness: This patient is a 68-year-old female, who presents for abdominal pain in the right upper quadrant. She has a history of COPD and hernia repair. Patient denies history of h ypertension, diabetes, coronary artery disease, or CVA. Patient started to experience abdominal pain 3 days ago. She has never had such kind of pain in the past. The abdominal pain is located in the right upper quadrant, which radiates to her back. The pain is consistently. The intensity is about a 5/10 when it was the worst. Currently, she does not have much pain. Patient does not complain of nausea or vomiting. No fever or chills. No diarrhea. No hematuria or dysuria. No headache. No ru nny nose. She reported exertional shortness of breath if she works too much. She needs inhaler as n eeded if she experiences shortness of breath. This patient presented to the emergency room for abdom inal pain. In the ED, her WBC 20.3 with neutrophil 84%. Electrolytes normal. Liver function within normal range. Abdominal CT was ordered by ED physician, which demonstrated gallbladder distention w ith borderline wall thickening. Abdominal ultrasound was then ordered, which demonstrated multiple s tones, cholelithiasis with pericholecystic fluid. This suggests acute cholecystitis. General Surger y was contacted from ED. The patient was admitted for acute cholecystitis and possible cholecystecto my. Past Medical History: 1.COPD. 2.Hernia. Review of Systems: No headache, no dizziness or lightheaded. No vision or hearing change. No runny nose or sore throat . No neck pain. No dysphagia. No cough or chest pain. No palpitation. No nausea or vomiting. No diarrhea. Abdominal pain as mentioned above. No dysuria or hematuria. No weakness or numbness. N o edema. No mental study status change. For other systems review, please see HPI. Home Medication: Patient uses albuterol inhaler as needed. Social History: Patient is a former smoker, nonalcoholic. Physical Examination: HEENT: PERRLA. EOMI. Neck: Supple. No JVD. Chest: Decreased breath sounds with minimal expiratory wheezing. No respiratory distress. Heart: Normal S1, S2. Regular rhythm, mild tachycardia. Abdomen: Soft, tenderness in the right upper quadrant. Olmos sign positive. Bowel sounds present. Obese. Extremities: Lower extremity, no cyanosis, no edema, no redness. Neurologic: Patient is awake and alert, oriented x3. No anxiety or depression. Skin: No rashes. Laboratory Data: WBC 20.3, hemoglobin 13.6, platelets 374, neutrophil 84%. Sodium 138, potassium 3. 8, bicarb 27, BUN 18, creatinine 1.1, glucose 127. Liver enzyme within normal range. Imaging Study: Abdominal CT, gallbladder distention with borderline gallbladder wall thickening. Th ere is a 1.1 cm right renal mass. Abdominal ultrasound demonstrates multiple stone, cholelithiasis w ith wall thickening and cholecystostomy fluid suggesting acute cholecystitis. Chest CTA, no evidence of a PE. No other significant findings. Assessment And Plan: 1.Cholelithiasis with acute cholecystitis. This patient experienced abdominal pain with Olmos sign positive. Abdominal CT demonstrates distended gallbladder. Ultrasound demonstrates multiple stones with wall thickening. This patient is suffering from acute cholecystitis. I started IV Zosyn empir ically and will give IV morphine as needed for pain control and IV fluids. General surgeon was consu lted from the ED. Dr. Luciano is planned to perform laparoscopic cholecystectomy in the morning. 2.Chronic obstructive pulmonary disease. This is stable. I started DuoNeb every 6 hours. I ordere d incentive spirometry after surgery. Will be cautious for postoperative pneumonia. 3.Elevated blood pressure without diagnosis of hypertension. Her blood pressure was at higher side, which is 150s to 160s in the ED. I started the lisinopril 10 mg empirically. This patient may have undiagnosed hypertension. Added IV hydralazine as needed. This patient has a history of chronic ob structive pulmonary disease, which put her on the moderate risk for surgical complication. We will closely monitor for postoperat christiano pneumonia. QT/MODL Voice ID: [id number]
[2019-08-16 05:45] LABS: Absolute Lymphocytes (CBC) 1.6 K/uL (0.7-4.9); Basophils % 0.3 % (0-1.3); Hematocrit 37.6 % (36.0-45.0); Lymphocytes % 6.4 % (15.3-44.8); MPV 7.4 fL (7.6-11.3); RBC Red Blood Cell Count 4.24 M/uL (3.86-4.86)
[2019-08-16 05:56] LABS: Magnesium 2.6 mg/dL (1.8-2.4); Potassium 3.3 mmol/L (3.5-5.1)
[2019-08-16 06:12] LABS: Protime INR 1.22
[2019-08-16] MEDS: ENOXAPARIN 40 MG/0.4 ML SQ SCH (06:48)
[2019-08-16] MEDS: KCL 20 MEQ/100 mL IVPB 20 MEQ/100 ML BAG IV SCH ×2 (06:48→16:28)
[2019-08-16 07:44] LABS: Urine Appearance CLOUDY; Urine Bilirubin NEGATIVE (NEG); Urine Blood TRACE (NEG); Urine Color YELLOW; Urine Glucose NEGATIVE (NEG); Urine Protein TRACE (NEG); Urine Specific Gravity 1.025 (1.005-1.030); Urine Urobilinogen 0.2 mg/dL (0.2-1.0); Urine pH 5.5 (5.0-7.0)
[2019-08-16 07:47] LABS: Urine Microscopic Reflex ORDER UMIC
[2019-08-16 07:56] LABS: Urine Bacteria >50 /HPF (<20); Urine Culture Reflex Order REFLEXED; Urine Mucus 1+ /HPF (NONE SEEN)
[2019-08-16 07:57] LABS: Blood Morphology Comment NOT SEEN (NOT SEEN); Platelet Estimate ADEQ
[2019-08-16] MEDS: lisinopriL 10 MG TAB PO SCH (08:15)
[2019-08-16] MEDS ORDERED: dexAMETHasone 10 MG/ML VIAL ONE (11:44)
[2019-08-16] MEDS ORDERED: LIDOCAINE 2% MPF 5 ML VIAL ONE (11:44)
[2019-08-16] MEDS ORDERED: FENTANYL CITR 100 MCG/2 ML ONE (11:44)
[2019-08-16] MEDS ORDERED: PROPOFOL 200 MG/20 ML VIAL IV ONE (11:44)
[2019-08-16] MEDS ORDERED: MIDAZOLAM HCL 2 MG/2 ML INJ ONE (11:44)
[2019-08-16] MEDS ORDERED: GLYCOPYRROLATE 0.2 MG/ML SYR ONE (11:44)
[2019-08-16] MEDS ORDERED: ROCURONIUM 50 MG/5 ML VIAL IV ONE (11:45)
[2019-08-16] MEDS ORDERED: Ringers Lactate 1,000 ML IV ONE (12:03)
[2019-08-16] MEDS ORDERED: Phenylephrine HCl 10 MG/ML 1 ML VIAL ONE (13:48)
[2019-08-16] MEDS ORDERED: KETOROLAC 30 MG/ML INJ ONE (14:18)
--- NOTE | 2019-08-16 14:32 | P.BOP ---
Preoperative diagnosis: acute cholecystitis, symptomatic cholelithiasis Postoperative diagnosis: same Primary procedure: Laparoscopic cholecystecomy Estimated blood loss: <10cc Specimen: gallbladder Findings: gallbladder with gangranous patches Anesthesia: General Complications: None Transferred to: Recovery Room Condition: Good
[2019-08-16] MEDS: MORPHINE 4 MG/ML SYR ONE ×4 (15:03→15:30)
[2019-08-16] MEDS ORDERED: ONDANSETRON 4 MG/2 ML VIAL ONE (15:37)
[2019-08-16] MEDS ORDERED: KCL 20 MEQ/100 mL IVPB 20 MEQ/100 ML BAG IV SCH (17:00)
--- NOTE | 2019-08-16 17:12 | P.PN ---
Subjective Date of Service: 08/16/19 Primary Care Provider: Dr. Clark; Pulmonary-Dr. Lagos Chief Complaint: Abdominal pain Subjective: Other (Patient stable this time. Keep NPO in preparation for surgery) Physical Examination - Vital Signs Temperature: 98.5 F Blood Pressure: 134/50 Pulse: 99 Respirations: 20 Pulse Ox (%): 92 - Physical Exam General: Alert, In no apparent distress, Cooperative HEENT: Atraumatic Neck: Supple Respiratory: Clear to auscultation bilaterally, Normal air movement Cardiovascular: Normal pulses, Regular rate/rhythm Gastrointestinal: Normal bowel sounds, Soft and benign, Non-distended, Tenderness (Abdominal pain with palpation) Neurological: Normal speech, Normal strength at 5/5 x4 extr, Normal tone - Studies Medications List Reviewed: Yes Assessment & Plan Discharge Plan: Home Plan to discharge in: 48 Hours Physician Review Additional Text: Impression: Abdominal pain secondary to acute cholecystitis with cholelithiasis Hypertension COPD Plan: Abdominal pain secondary to acute cholecystitis with cholelithiasis: Patient NPO in preparation for laparoscopic cholecystectomy. Continue IV antibiotic therapy at this time. Continue IV fluids. Await further recommendations after surgery. Anticipate discharge in the next 1-2 days with clinical improvement. Hypertension: Patient started on lisinopril. Hydrochlorothiazide held. COPD: Will provide medication as needed Time Spent Managing Pts Care (In Minutes): 55
[2019-08-16] MEDS: GABAPENTIN 100 MG CAP PO SCH (20:41)
[2019-08-17] MEDS: PIPER/TAZO/NS 3.375gm 3.375 GM/100 ML BAG IVPB SCH ×3 (00:04→16:34)
[2019-08-17] MEDS: IPRATROPIUM BROM 0.5MG/2.5ML NEB SCH ×4 (01:30→20:00)
[2019-08-17] MEDS: ALBUTEROL 2.5 MG/3 ML NEB SOL NEB SCH ×4 (01:30→20:00)
[2019-08-17] MEDS: NA CHLORIDE 0.9% 1,000 ML IV SCH ×2 (01:53→10:44)
[2019-08-17] MEDS: MORPHINE 4 MG/ML SYR IV PRN (02:33)
[2019-08-17 06:13] LABS: Absolute Lymphocytes (CBC) 0.5 K/uL (0.7-4.9); Basophils % 0.1 % (0-1.3); Hematocrit 30.7 % (36.0-45.0); Lymphocytes % 3.2 % (15.3-44.8); RBC Red Blood Cell Count 3.46 M/uL (3.86-4.86)
[2019-08-17 06:37] LABS: Potassium 4.8 mmol/L (3.5-5.1)
[2019-08-17] MEDS: lisinopriL 10 MG TAB PO SCH (08:54)
[2019-08-17] MEDS: ENOXAPARIN 40 MG/0.4 ML SQ SCH (08:55)
--- NOTE | 2019-08-17 10:39 | RAD REPORT ---
EXAM DESCRIPTION: RAD - Chest Pa And Lat (2 Views) - 08/17/2019 10:35 am CLINICAL HISTORY: COPD, Post lab oriana. evaluate for atelectasis Chest pain. COMPARISON: Chest Single View dated 08/15/2019; CHEST PA AND LAT 2 VIEW dated 09/30/2014; CHEST PA AND LAT 2 VIEW dated 10/01/2012; CHEST PA AND LAT 2 VIEW dated 08/06/2012Chest Single View dated 9; CHEST PA AND LAT 2 VIEW dated 09/30/2014; CHEST PA AND LAT 2 VIEW dated 10/01/2012; CHEST PA AND LAT 2 VIEW dated 08/06/2012 TECHNIQUE: PA and lateral views of the chest were obtained. FINDINGS: The lungs are hyperexpanded compatible with COPD. The heart is upper limit of normal in si ze. No fracture or aggressive bony process. IMPRESSION: COPD without acute process identified.
[2019-08-17] MEDS: DULERA 100/5 (MOMETASONE/FORMOTEROL) INHALER IH SCH ×2 (10:43→20:14)
--- NOTE | 2019-08-17 12:48 | P.PN ---
Subjective Date of Service: 08/17/19 Primary Care Provider: Dr. Clark; Pulmonary-Dr. Lagos Chief Complaint: Abdominal pain Subjective: Other (Patient with mild wheezing. Patient status post laparoscopic cholecystectomy last night.) Physical Examination - Vital Signs Temperature: 97.1 F Blood Pressure: 141/59 Pulse: 84 Respirations: 16 Pulse Ox (%): 84 - Physical Exam General: Alert, In no apparent distress, Cooperative HEENT: Atraumatic Neck: Supple Respiratory: Expiratory wheezes (Bilateral) Cardiovascular: Normal pulses, Regular rate/rhythm Gastrointestinal: Normal bowel sounds, Other (Status postsurgical changes to the abdomen) Neurological: Normal speech, Normal strength at 5/5 x4 extr, Normal tone, Normal affect - Studies Medications List Reviewed: Yes Assessment & Plan Discharge Plan: Home Plan to discharge in: 24 Hours Physician Review Additional Text: Impression: Abdominal pain secondary to acute cholecystitis with cholelithiasis status post laparoscopic cholecystectomy with noted gangrenous patches Hypertension COPD Acute on chronic renal disease stage III Postop anemia Plan: Abdominal pain secondary to acute cholecystitis with cholelithiasis status post laparoscopic cholecystectomy with noted gangrenous patches: Patient is status post laparoscopic cholecystectomy. Drain in place. Continue IV antibiotic therapy. Will adjust IV fluids. Encourage ambulation. What physical therapy ambulate. Will have respiratory encourage incentive spirometer. Will wean off oxygen. Maintain sats above 90%. Will discuss with surgery about plan of care. Anticipate discharge in the next 1-2 days. Hypertension: Continue with medication. Will monitor closely. COPD: Chest x-ray shows no pneumonia. Wean off oxygen. Respiratory consulted to help with this. Encourage incentive spirometer. Continue with COPD medication. Will monitor closely. Anemia of chronic disease stage III: Continue low-dose IV fluids. Once taking good oral intake will then discontinue. Will adjust medication. Will monitor closely. Postop anemia: Continue to monitor closely. Time Spent Managing Pts Care (In Minutes): 55
[2019-08-17] MEDS ORDERED: NACHLORIDE 0.45% 1,000 ML IV SCH ×2 (13:00→17:00)
[2019-08-17] MEDS: MORPHINE 2 MG/ML SYR IV PRN (13:39)
--- NOTE | 2019-08-17 17:13 | P.PN ---
Date of Service: 08/17/19 Dr. Luciano is out of town. He asked me to just check on his patient for him. Patient's no complaints, says she has full much better. Minimal out through the RJ drain. It is serous, no evidence of any bile. Patient appears to stable status post lap choly
[2019-08-17] MEDS: GABAPENTIN 100 MG CAP PO SCH (20:13)
[2019-08-18] MEDS: PIPER/TAZO/NS 3.375gm 3.375 GM/100 ML BAG IVPB SCH ×3 (00:43→16:18)
[2019-08-18] MEDS: IPRATROPIUM BROM 0.5MG/2.5ML NEB SCH ×4 (01:45→19:25)
[2019-08-18] MEDS: ALBUTEROL 2.5 MG/3 ML NEB SOL NEB SCH ×4 (01:45→19:25)
[2019-08-18] MEDS: MORPHINE 4 MG/ML SYR IV PRN (04:42)
[2019-08-18 05:43] LABS: Absolute Lymphocytes (CBC) 1.2 K/uL (0.7-4.9); Basophils % 0.1 % (0-1.3); Hematocrit 29.1 % (36.0-45.0); Lymphocytes % 11.5 % (15.3-44.8); MPV 7.5 fL (7.6-11.3); RBC Red Blood Cell Count 3.26 M/uL (3.86-4.86)
[2019-08-18 05:54] LABS: Magnesium 2.5 mg/dL (1.8-2.4); Potassium 3.7 mmol/L (3.5-5.1)
[2019-08-18] MEDS: lisinopriL 10 MG TAB PO SCH (08:18)
[2019-08-18] MEDS: ENOXAPARIN 40 MG/0.4 ML SQ SCH (08:18)
[2019-08-18] MEDS: DULERA 100/5 (MOMETASONE/FORMOTEROL) INHALER IH SCH ×2 (08:20→20:00)
[2019-08-18] MEDS ORDERED: POTASSIUM CL SA 10 MEQ TAB PO ONE (09:00)
--- NOTE | 2019-08-18 10:22 | P.PN ---
Subjective Date of Service: 08/18/19 Primary Care Provider: Dr. Clark; Pulmonary-Dr. Lagos Chief Complaint: Abdominal pain Subjective: Improving, Doing well Physical Examination - Vital Signs Temperature: 97.9 F Blood Pressure: 125/58 Pulse: 87 Respirations: 19 Pulse Ox (%): 94 - Physical Exam General: Alert, In no apparent distress, Oriented x3, Cooperative HEENT: Atraumatic Neck: Supple Respiratory: Expiratory wheezes (Mild wheezing) Cardiovascular: Normal pulses, Regular rate/rhythm Gastrointestinal: Normal bowel sounds, Soft and benign, Non-distended, No masses , No rebound, No guarding Integumentary: No erythema, No warmth, No cyanosis Neurological: Normal speech, Normal strength at 5/5 x4 extr, Normal tone, Normal affect - Studies Medications List Reviewed: Yes Assessment & Plan Discharge Plan: Home Plan to discharge in: 24 Hours Physician Review Additional Text: Impression: Abdominal pain secondary to acute cholecystitis with cholelithiasis status post laparoscopic cholecystectomy with noted gangrenous patches Hypertension COPD Acute on chronic renal disease stage III Postop anemia Plan: Abdominal pain secondary to acute cholecystitis with cholelithiasis status post laparoscopic cholecystectomy with noted gangrenous patches: Patient is status post laparoscopic cholecystectomy. Drain in place. Patient has done well. Possible discharge likely today if okay with surgery. Hypertension: Continue with medication. Will monitor closely. COPD: Chest x-ray shows no pneumonia. Continue COPD medication. Anemia of chronic renal disease stage III: This has improved. Will monitor closely. Postop anemia: Continue to monitor closely. Time Spent Managing Pts Care (In Minutes): 55
--- NOTE | 2019-08-18 14:34 | P.PN ---
Date of Service: 08/18/19 S: Patient feels great today, no complaints, anxious to go home. O: Vital signs are stable, minimal out through her RJ drain. Pain is well controlled on oral medication. A: Surgically stable P: Patient wants go home. She says that she is getting depressed and can do this at the house. She has minimal out through RJ drain. She has been afebrile for the last 48 hr. She is going to be discharged today, kept on oral antibiotics, she will keep an eye on the drain herself. She is going to check in with Dr. Luciano is office tomorrow and arrange for follow-up.
[2019-08-18] MEDS ORDERED: LACTULOSE 20 GM/30 ML UCUP PO ONE (15:00)
--- NOTE | 2019-08-18 19:58 | RAD REPORT ---
EXAM DESCRIPTION: RAD - Abdomen 1 View (KUB) - 08/18/2019 7:19 pm CLINICAL HISTORY: R/O obstruction Abdominal pain COMPARISON: Chest Pa And Lat (2 Views) dated 08/17/2019 FINDINGS: Air is present in nondilated large and small bowel loops. Air and stool are present in the rectum. No free air or pneumatosis. Ileus is favored over obstruction. Drain tube is present in the right upper quadrant. Skin jaya are in place from laparoscopic cholecystectomy. No suspicious calc ifications. No significant bony findings IMPRESSION: Bowel gas pattern favors ileus over obstruction. No free air or pneumatosis.
[2019-08-18] MEDS: MORPHINE 2 MG/ML SYR IV PRN (19:59)
[2019-08-18] MEDS: GABAPENTIN 100 MG CAP PO SCH (20:00)
[2019-08-19] MEDS: PIPER/TAZO/NS 3.375gm 3.375 GM/100 ML BAG IVPB SCH ×2 (00:21→09:05)
[2019-08-19] MEDS ORDERED: ROPINIROLE HCL 0.25 MG TAB PO SCH (01:00)
[2019-08-19] MEDS: ALBUTEROL 2.5 MG/3 ML NEB SOL NEB SCH ×2 (01:20→08:41)
[2019-08-19] MEDS: IPRATROPIUM BROM 0.5MG/2.5ML NEB SCH ×2 (01:20→08:41)
[2019-08-19 05:49] LABS: Absolute Lymphocytes (CBC) 1.8 K/uL (0.7-4.9); Basophils % 0.7 % (0-1.3); Hematocrit 29.2 % (36.0-45.0); Lymphocytes % 20.8 % (15.3-44.8); MPV 7.6 fL (7.6-11.3); RBC Red Blood Cell Count 3.31 M/uL (3.86-4.86)
[2019-08-19 06:01] LABS: Magnesium 2.2 mg/dL (1.8-2.4); Potassium 3.5 mmol/L (3.5-5.1)
[2019-08-19] MEDS: MORPHINE 2 MG/ML SYR IV PRN (07:31)
[2019-08-19] MEDS ORDERED: KCL 20 MEQ/100 mL IVPB 20 MEQ/100 ML BAG IV SCH (08:00)
[2019-08-19] MEDS: DULERA 100/5 (MOMETASONE/FORMOTEROL) INHALER IH SCH (08:50)
[2019-08-19] MEDS: ENOXAPARIN 40 MG/0.4 ML SQ SCH (08:50)
[2019-08-19] MEDS: lisinopriL 10 MG TAB PO SCH (08:51)
[2019-08-19] MEDS ORDERED: NA CHLORIDE 0.9% 250 ML ONE (08:56)
[2019-08-19 10:03] VITALS: O2SAT 96
--- NOTE | 2019-08-19 10:26 | P.DS ---
Admission Date: 08/15/19 Discharge Date: 08/19/19 Primary Care Provider: Dr. Clark; Pulmonary-Dr. Lagos Disposition: ROUTINE DISCHARGE Discharge Condition: GOOD Reason for Admission: Abdominal pain Consultations: Surgery-Dr. Luciano Procedures: CT Chest: FINDINGS: No pulmonary emboli are identified. The aorta as imaged shows no acute or suspicious finding. No pericardial thickening or effusion. No suspicious lung parenchymal process. No suspicious infiltrate or mass. A small 5 mm nodule in the posterior lower left lobe has not change from October 2018. No pleural effusion or pleural thickening. No mediastinal or hilar suspicious masses. No chest wall masses or abnormal axillary lymphadenopathy. Patient has dense for age breast parenchymal pattern. This is symmetric and stable. IMPRESSION: No pulmonary emboli identified. No other significant or suspicious findings. CT Abdomen: FINDINGS: Some of the images are degraded by patient motion artifact. The gallbladder is distended. Gallbladder wall appears borderline thickened. Mild fatty infiltration liver Spleen, pancreas, adrenal and left kidney appear unremarkable. An 11 millimeter low to intermediate density mass within right kidney suspected. . Right renal cortical thinning may be secondary to prior inflammation There is no evidence of diverticulitis. Hysterectomy IMPRESSION: Gallbladder distention with borderline gallbladder wall thickening likely indicating pathology. 11 millimeter right renal mass does not represent a simple cyst. Ultrasound recommended Follow up CXR: FINDINGS: The lungs are hyperexpanded compatible with COPD. The heart is upper limit of normal in size. No fracture or aggressive bony process. IMPRESSION: COPD without acute process identified. Surgery: Date of surgery: 08/16/2019 Surgeon: Dr. Luciano Preop diagnosis: Acute cholecystitis, symptomatic cholelithiasis Postop diagnosis: Same Primary procedure: Laparoscopic cholecystectomy Findings: Gallbladder with gangrenous patches Complications: None Limited AbUS: FINDINGS: Gallbladder is distended. Several gallstones are present up to 2 cm in size. Wall thickening is present with pericholecystic fluid. Gallbladder findings match the CT. Common bile duct is normal with no common duct stone identified. IMPRESSION: Multi stone cholelithiasis with wall thickening and pericholecystic fluid. Findings are suspicious for acute cholecystitis and need correlation with clinical presentation. No biliary tree dilatation. Medical Problem List: Abdominal pain secondary to acute cholecystitis with cholelithiasis status post laparoscopic cholecystectomy with noted gangrenous patches Hypertension COPD Acute renal injury likely dehydration Postop anemia 11 mm right renal mass 5 mm posterior left lower lobe nodule unchanged since October 2018 lobe Brief History of Present Illness: 68-year-old female presented to the emergency room with abdominal pain mainly to the right upper quadrant. Patient was evaluated in the emergency room. Patient found to have cholelithiasis with cholecystitis. Patient was admitted for further evaluation and treatment. Hospital Course: Patient presented with abdominal pain secondary to acute cholecystitis with cholelithiasis. Patient seen and evaluated by surgery. Surgical intervention was required. Laparoscopic cholecystectomy was performed. Patient tolerated procedure well. Postoperatively patient remained in the hospital and monitored closely. Patient was able to have a bowel movement. At discharge she is without significant abdominal pain and distention. Patient has been cleared by surgery to be discharge. Drain place. Patient will continue with drain and monitor output closely. She is to record output from drain closely. Patient will follow up with surgery on Monday to have the drain removed. Patient will continue with Augmentin 875 mg 1 pill twice daily for 6 more days. Patient provided medication for pain. No heavy lifting, pushing or pulling. Recommend follow up with surgery as directed. Patient with hypertension. Medications have been adjusted for better control. Hydrochlorothiazide has been discontinued. At discharge she will continue with lisinopril 20 mg daily. Recommend to maintain the blood pressures less 150/80. Further adjustment can be done by her PCP. Patient had postop anemia. This has remained stable. Recommend to recheck lab- CBC in 2-4 weeks to monitor progress. Patient had acute renal injury likely from dehydration. Recommend to recheck lab-BMP in 1-2 weeks to monitor progress. CT scan also revealed a 11 mm right renal mass. It is recommended that she have a renal ultrasound done as an outpatient to further evaluate. This may require further evaluation by a nephrology and/or urology. Recommend no further use of nonsteroidal anti- inflammatories. Patient has COPD. Patient will continue with her medications of Dulera 2 puffs twice daily and Combivent 2 puffs 3 times a day as needed for shortness of breath. CT scan revealed a 5 mm posterior left lower lobe nodule unchanged since 2018. Will recommend that she follow up with pulmonology to further monitor and address. Vital Signs/Physical Exam: Temp Pulse Resp BP Pulse Ox 98.2 F 100 H 19 158/73 H 93 08/19/19 08:00 08/19/19 08:51 08/19/19 08:01 08/19/19 08:51 08/19/19 08:01 General: Alert, In no apparent distress, Oriented x3, Cooperative HEENT: Atraumatic Neck: Supple Respiratory: Expiratory wheezes (Mild wheezing bilateral) Cardiovascular: Normal pulses, Regular rate/rhythm Gastrointestinal: Normal bowel sounds, Soft and benign, Non-distended, No masses , No rebound, No guarding, Other (Postsurgical changes noted) Musculoskeletal: No erythema, No tenderness, No warmth Integumentary: No tenderness/swelling, No erythema, No warmth, No cyanosis Neurological: Normal speech, Normal strength at 5/5 x4 extr, Normal tone, Normal affect Laboratory Data at Discharge: WBC 8.7 K/uL (4.3-10.9) 08/19/19 05:32 Hgb 9.9 g/dL (12.0-15.0) L 08/19/19 05:32 Hct 29.2 % (36.0-45.0) L 08/19/19 05:32 Plt Count 315 K/uL (152-406) 08/19/19 05:32 PT 14.3 SECONDS (9.5-12.5) H 08/16/19 05:28 INR 1.22 08/16/19 05:28 APTT 32.9 SECONDS (24.3-36.9) 08/16/19 05:28 Sodium 142 mmol/L (136-145) 08/19/19 05:32 Potassium 3.5 mmol/L (3.5-5.1) 08/19/19 05:32 BUN 15 mg/dL (7-18) 08/19/19 05:32 Creatinine 0.86 mg/dL (0.55-1.3) 08/19/19 05:32 Glucose 92 mg/dL (74-106) 08/19/19 05:32 Phosphorus 3.0 mg/dL (2.5-4.9) 08/16/19 05:28 Magnesium 2.2 mg/dL (1.8-2.4) 08/19/19 05:32 Total Bilirubin 0.8 mg/dL (0.2-1.0) 08/15/19 11:00 AST 19 U/L (15-37) 08/15/19 11:00 ALT 26 U/L (12-78) 08/15/19 11:00 Alkaline Phosphatase 98 U/L (45-117) 08/15/19 11:00 Lipase 60 U/L (73-393) L 08/15/19 11:00 Home Medications: Gabapentin [Neurontin*] 100 mg PO BEDTIME 08/15/19 Ipratropium/Albuterol Sulfate [Combivent Respimat 20-100 Mcg] 4 gm IH QID Amox/Clavulanate [Augmentin 875-125 Tab] 875 mg PO BID #12 tab 08/19/19 Lisinopril [Prinivil*] 20 mg PO DAILY #60 tab 08/19/19 Mometasone/Formoterol [Dulera 100 Mcg/5 Mcg Inhaler] 2 puff IH BID #1 inhaler Tramadol HCl/Acetaminophen [Ultracet Tablet] 1 each PO Q4H PRN #30 tablet New Medications: Amox/Clavulanate [Augmentin 875-125 Tab] 875 mg PO BID #12 tab Lisinopril [Prinivil*] 20 mg PO DAILY #60 tab Mometasone/Formoterol [Dulera 100 Mcg/5 Mcg Inhaler] 2 puff IH BID #1 inhaler Tramadol HCl/Acetaminophen [Ultracet Tablet] 1 each PO Q4H PRN #30 tablet PRN Reason: Pain Scale 5-7 (Moderate) Patient Discharge Instructions: 1. Follow up with her PCP within 1 week to follow up this hospitalization. 2. Patient presented with abdominal pain secondary to acute cholecystitis with cholelithiasis. Patient seen and evaluated by surgery. Surgical intervention was required. Laparoscopic cholecystectomy was performed. Patient tolerated procedure well. Postoperatively patient remained in the hospital and monitored closely. Patient was able to have a bowel movement. At discharge she is without significant abdominal pain and distention. Patient has been cleared by surgery to be discharge. Drain place. Patient will continue with drain at discharge. She is to record output from the drain closely. Patient will follow up with surgery on Monday to have the drain removed. Patient will continue with Augmentin 875 mg 1 pill twice daily for 6 more days. Patient provided medication for pain. No heavy lifting, pushing or pulling. Recommend follow up with surgery as directed. Patient may shower with dressing off. 3. Patient with hypertension. Medications have been adjusted for better control. Hydrochlorothiazide has been discontinued. At discharge she will continue with lisinopril 20 mg daily. Recommend to maintain the blood pressures less 150/80. Further adjustment can be done by her PCP. 4. Patient had postop anemia. This has remained stable. Recommend to recheck lab-CBC in 2-4 weeks to monitor progress. 5. Patient had acute renal injury likely from dehydration. Recommend to recheck lab-BMP in 1-2 weeks to monitor progress. CT scan also revealed a 11 mm right renal mass. It is recommended that she have a renal ultrasound done as an outpatient to further evaluate. This may require further evaluation by a nephrology and/or urology. Recommend no further use of nonsteroidal anti-inflammatories. 6. Patient has COPD. Patient will continue with her medications of Dulera 2 puffs twice daily and Combivent 2 puffs 3 times a day as needed for shortness of breath. CT scan revealed a 5 mm posterior left lower lobe nodule unchanged since every 2019. Will recommend that she follow up with pulmonology to further monitor and address. Diet: AHA Activity: No lifting more than 10 lbs Followup: Evan Luciano MD [ACTIVE - CAN ADMIT] - 1 Week Time spent managing pt's care (in minutes): 55
[2019-08-19 12:28] VITALS: BP 165/73; TEMP 98.6
[2019-08-20] MEDS ORDERED: lisinopriL 20 MG TAB PO SCH (09:00)
--- NOTE | 2019-09-04 21:16 | OP ---
Surgeon: Evan Luciano MD Preoperative Diagnoses: Acute cholecystitis, symptomatic cholelithiasis. Postoperative Diagnosis: Acute cholecystitis, symptomatic cholelithiasis. Procedure Performed: Laparoscopic cholecystectomy. Specimen: Gallbladder. Findings: Gallbladder with gangrenous patches. Anesthesia: General plus local. Indications For Procedure: This is the case of a female who comes to us with epigastric right upper quadrant pain, admitted to the hospital, diagnosed with acute cholecystitis, symptomatic cholelithias is. The benefits, alternatives, and risks of laparoscopic, possible open cholecystectomy were fully explained to the patient, which include, but are not limited to infection, bleeding, damage to adjace nt structures, anesthesia complications, cholelithiasis, bile leak, pancreatitis, CA, and even . She also understands this may not relieve any symptoms, she might need more than one surgical inter vention. She understood, signed the consent. Description Of Procedure: Patient was brought to the operating room, placed in supine position. Ane sthesia was done without complication. Abdominal area was prepped and draped in usual sterile fashio n. A time-out was called. An incision was made in the infraumbilical region. Incision was carried down to fascia, which was opened under direct vision. Peritoneum was encountered, opened under direc t vision. Vicryl #1 placed inside of the fascia. Jr trocar was carefully introduced. No bleedi ng was obtained. I placed 3 more trocars, 5 mm each one of them, one in the epigastric area, 2 in th e right upper quadrant under direct visualization. We immediately noticed the gallbladder to be acut livia inflamed with even several patches of gangrenous changes on the gallbladder. We were able to fin d a place where we can put a grasper in the fundus of the gallbladder, another grasper in the infundi bulum, retracted the gallbladder in the inferolateral fashion exposing the triangle of Calot, obtaini ng critical view of safety. The cystic duct and cystic artery were clearly isolated, freed circumfer entially, and a connection between those and the gallbladder was clearly identified. I proceeded to ligate those by using at least 3 clips proximal, 1 clip distal, ligation in the middle. Same was don e with cystic artery. No bile leak. No bleeding. The gallbladder was removed from liver using Bovi e cauterizer and removed from abdominal cavity using the EndoCatch through the umbilical incision. T he area was inspected once again. No bile leak. No bleeding. Profuse irrigation was done over the area. The clips were intact. At that moment, I proceeded to remove the trocars under direct vision. Deflated the pneumoperitoneum. Closed the fascia with #1 Vicryl. Irrigated subcutaneous tissue, c losed that with 3-0 chromic and skin with jaya. Sponge counts and instrument count were correct. Patient tolerated the procedure well. Patient was sent to the recovery in stable condition. GABE/JOVITA Voice ID: [id number] Report ID: [id number]
== END 2019-08-19 13:28 | disposition left against medical advice (07) | DRG 418 ==
LOC: ER 10:16 → ERHOLD 16:58 → 2ND 19:36
PROVIDERS: ADMIT Internal Medicine; ATTEND Internal Medicine
PROC: 0FT44ZZ Resection of Gallbladder, Percutaneous Endoscopic Approach (ICD-10-PCS; principal; 2019-08-16 12:45)
DX: K80.00 Calculus of gallbladder with acute cholecystitis without obstruction (principal); N17.9 Acute kidney failure, unspecified; K82.A1 Gangrene of gallbladder in cholecystitis; J44.9 Chronic obstructive pulmonary disease, unspecified; I12.9 Hypertensive chronic kidney disease with stage 1 through stage 4 chronic kidney disease, or unspecified chronic kidney disease; N18.3 Chronic kidney disease, stage 3 (moderate); D64.9 Anemia, unspecified; N28.89 Other specified disorders of kidney and ureter; R91.1 Solitary pulmonary nodule
CPT/HCPCS: 36415; 71045; 71046; 71275; 74018; 74177; 76705; 80048; 80076; 81003; 81015; 83036; 83605; 83690; 83735; 84100; 84132; 85025; 85610; 85730; 87086; 87088; 88304; 93005; 94640; 96361; 96365; 97116; 97161; 97530; 99284; J1100; J1650; J2250; J2270; J2370; J2405; J2543; J2704; J3010; J7030; J7120; J7512; J7606; Q9967

== ENCOUNTER → 2020-03-11 | Day surgery (SDC) | payer OTHER ==
--- OUTSIDE RECORDS SUMMARY | 2020-03-11 09:03 | XMS REPORT | Continuity of Care Document ---
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 disc (disorder) Hypertensive Active Problem 12/13/2019 M[facility] disorder, systemic N euro arterial (disorder) Lumbar Active Problem 12/13/2019 [facility] radiculopathy Neuro (disorder) Obesity (disorder) Active Problem 12/13/2019 [facility] Spinal stenosis of Active Problem 12/13/2019 [facility] lumbar region Neuro (disorder) Medications Medication Details Route Status Patient Ordering Order Source Instructions Provider Date gabapentin 100 MG 100 mg = 1 Active Mis marie Oral Capsule cap, PO, 019 Neuro Bedtime, # 90 cap, 3 Refill(s), Pharmacy: [id number] gabapentin 100 MG 100 mg = 1 Active Mis marie Oral Capsule cap, PO, 019 Neuro Bedtime, # 30 cap, 2 Refill(s), Pharmacy: [id number] Amitriptyline 1 tab, PO, Active [facility] Hydrochloride 25 MG TID, 0 019 Neur o / Chlordiazepoxide Refill(s) 10 MG Oral Tablet [Limbitrol 25/10] Ibuprofen 500 mg, Active [facility] PO, QID, 0 019 Neuro Refill(s) Pramipexole 0.5 mg, Active [facility] PO, Daily, 019 Neuro 0 Refill(s) 200 ACTUAT 3 puff, Active [facility] Albuterol 0.09 PRN, 0 019 Neuro MG/ACTUAT / Refill(s) Ipratropium [place] 0.018 MG/ACTUAT Metered Dose Inhaler [Combivent] Allergies, Adverse Reactions, Alerts Substance Category Reaction Severity Reaction Status Date Comments S ource type Reported codeine Assertion Drug Active Mische r allergy Neuro iodine Assertion feel Drug Active Mische r paralized allergy Neuro Immunizations No Data Provided for This Section Results No Data Provided for This Section Pathology Reports No Data Provided for This Section Diagnostic Reports No Data Provided for This Section Consultation Notes No Data Provided for This Section Discharge Summaries No Data Provided for This Section History and Physicals No Data Provided for This Section Vital Signs Vital Sign Value Date Comments Source Systolic (mm Hg) 192 09/19/2019 [facility] Diastolic (mm Hg) 81 09/19/2019 [facility] Heart Rate 109 09/19/2019 [facility] Respitory Rate 16 09/19/2019 [facility] Height 160.02 cm 09/19/2019 [facility] Weight 77.727 09/19/2019 [facility] BMI Calculated 30.35 09/19/2019 [facility] Systolic (mm Hg) 146 08/06/2019 [facility] Diastolic (mm Hg) 90 08/06/2019 [facility] Heart Rate 99 08/06/2019 [facility] Respitory Rate 16 08/06/2019 [facility] Height 160.02 cm 08/06/2019 [facility] Weight 82.273 08/06/2019 [facility] BMI Calculated 32.13 08/06/2019 [facility] Systolic (mm Hg) 144 06/25/2019 [facility] Diastolic (mm Hg) 68 06/25/2019 [facility] Heart Rate 109 06/25/2019 [facility] Respitory Rate 16 06/25/2019 [facility] Height 160.02 cm 06/25/2019 [facility] Weight 81.364 06/25/2019 [facility] BMI Calculated 31.77 06/25/2019 [facility] Systolic (mm Hg) 165 06/13/2019 [facility] Diastolic (mm Hg) 95 06/13/2019 [facility] Heart Rate 109 06/13/2019 [facility] Respitory Rate 16 06/13/2019 [facility] Height 162.56 cm 06/13/2019 [facility] Weight 80.455 06/13/2019 [facility] BMI Calculated 30.45 06/13/2019 [facility] Encounters Location Location Encounter Encounter Reason Attending ADM DC Stat us Source Details Type Number For Provider Date Date Visit Outpatient [id number] NAOMI 08/12 Active [facility] LOPEZ Javier Outpatient [id number] Kvng 06/13 Active [facility] [place] MNA Outpatient [id number] Kvng 06/13 06/14 [facility] [place] Outpatient [id number] Kvng 06/25 Active [facility] [place] MNA Outpatient [id number] Kvng 06/25 06/26 [facility] [place] Outpatient [id number] Kvng 08/06 Active [facility] [place] MNA Outpatient [id number] Kvng 08/06 08/07 [facility] [place] Outpatient [id number] Kvng 09/19 Active [facility] [place] MNA Outpatient [id number] Kvng 09/19 09/20 [facility] [place] Outpatient [id number] Kvng 12/10 Active [facility] [place] MNA Ambulatory [id number] Kvng 12/10 12/10 [facility] Pre-Reg [facility] [place] Procedures Procedure Code Date Perfomer Comments Source Laminectomy [id number] [facility] Neuro Assessment and Plan No Data Provided for This Section Plan of Care No Data Provided for This Section Social History Social History Date Source Social History TypeResponse 08/12/2016 [facility] Neur o Alcohol Never Employment/School 1 Smoking Status Never smoker; Exposure to Tobacco Smoke None; Cigarette Smoking Last 365 Days No; Reg Smoking Cessation Counseling No entered on: 09/19/19 1May release medical information to -Spo use Vinod Delgado, Will Ashkan- Daughter, Dr. Clark-PCP Family History No Data Provided for This Section Advance Directives No Data Provided for This Section Functional Status No Data Provided for This Section
--- NOTE | 2020-03-11 10:37 | RAD REPORT ---
EXAM DESCRIPTION: Ultrasound-guided vacuum assisted right breast core biopsy CLINICAL HISTORY: Breast mass N63.11, N63.12 COMPARISON: BREAST/AXILLA, LIMITED dated 05/08/2015 FINDINGS: Informed consent was obtained and time-out was performed. The patient's right breast was prepped and draped in the usual sterile fashion. 1% lidocaine was used for local anesthetic purposes. Utilizing aseptic technique and ultrasound guidance, a 12 gauge vacuum assisted core biopsy device wa s used to obtain 3 core specimens through the mass of interest 6 o'clock periareolar right breast. A post biopsy clip was then placed. All collected material was sent for cytology. Patient tolerated procedure well. IMPRESSION: Successful ultrasound guided vacuum assisted right breast mass biopsy.
== END | disposition home or self-care (01) ==
LOC: DS 08:00
PROVIDERS: ATTEND Surgery
DX: C50.911 Malignant neoplasm of unspecified site of right female breast (principal); Z17.0 Estrogen receptor positive status [ER+]
CPT/HCPCS: 19083; 88305

== ENCOUNTER 2020-03-31 07:51 | Day surgery (SDC) | payer OTHER ==
--- OUTSIDE RECORDS SUMMARY | 2020-03-30 08:58 | XMS REPORT | Continuity of Care Document ---
:1950 Author Organization [employer] Care Team Providers Name Role Phone Merlin Diamonds Unavailable Un available Problems Problem Status Onset [...] Bedtime, # 90 cap, 3 Refill(s), Pharmacy: [id number] gabapentin 100 MG 100 mg = 1 Active Mis marie Oral Capsule cap, PO, 019 Neuro Bedtime, # 30 cap, 2 Refill(s), Pharmacy: [id number] Amitriptyline 1 tab, PO, Active [facility] Hydrochloride 25 MG TID, 0 019 Neur o / Chlordiazepoxide Refill(s) 10 MG Oral Tablet [Limbitrol 25/10] Ibuprofen 500 mg, Active [facility] PO, QID, 0 019 Neuro Refill(s) Pramipexole 0.5 mg, Active [facility] PO, Daily, 019 Neuro 0 Refill(s) 200 ACTUAT 3 puff, Active [facility] Albuterol 0.09 PRN, 0 019 Neuro MG/ACTUAT / Refill(s) Ipratropium [place] 0.018 MG/ACTUAT Metered Dose Inhaler [Combivent] Allergies, [...] 09/19/2019 [facility] Respitory Rate 16 [facility] Height 160.02 cm 09/19/2019 [facility] Weight 77.727 09/19/2019 [facility] BMI Calculated 30.35 09/19/2019 [facility] Systolic (mm Hg) 146 08/06/2019 [facility] Diastolic (mm Hg) 90 08/06/2019 [facility] Heart Rate 99 08/06/2019 [facility] Respitory Rate 16 08/06/2019 [facility] Height 160.02 cm 08/06/2019 [facility] Weight 82.273 08/06/2019 [facility] BMI Calculated 32.13 08/06/2019 [facility] Systolic (mm Hg) 144 06/25/2019 [facility] Diastolic (mm Hg) 68 06/25/2019 [facility] Heart Rate 109 06/25/2019 [facility] Respitory Rate 16 06/25/2019 [facility] Height 160.02 cm 06/25/2019 [facility] Weight 81.364 06/25/2019 [facility] BMI Calculated 31.77 06/25/2019 [facility] [...] Number For Provider Date Date Visit Outpatient [id number] NAOMI 08/12 Active [facility] LOPEZ Javier Outpatient [id number] Kvng 06/13 Active [facility] [place] MNA Outpatient [id number] Kvng 06/13 06/14 [facility] [place] Outpatient [id number] Kvng 06/25 Active [facility] [place] MNA Outpatient [id number] Kvng 06/25 06/26 [facility] [place] Outpatient [id number] Kvng 08/06 Active [facility] [place] MNA Outpatient [id number] Kvng 08/06 08/07 [facility] [place] [facility] [id number] Kvng 09/19 Active [facility] [place] MNA Outpatient [id number] Kvng 09/19 09/20 [facility] [place] [facility] [id number] Kvng 12/10 Active [facility] [place] MNA Ambulatory [id number] Kvng 12/10 12/10 [facility] Pre-Reg [facility] [place] Procedures Procedure Code Date Perfomer Comments Source Laminectomy [id number] [facility] Neuro Assessment and Plan No Data Provided for This Section Plan of Care No Data Provided for This Section Social History Social History Date Source Social History TypeResponse 08/12/2016 [facility] Neur o Alcohol Never Employment/School 1 Smoking [...]
--- NOTE | 2020-03-30 09:14 | RAD REPORT ---
EXAM DESCRIPTION: RAD - Chest Pa And Lat (2 Views) - 03/30/2020 9:03 am CLINICAL HISTORY: pre op Chest pain. COMPARISON: Abdomen 1 View (KUB) dated 08/18/2019; Chest Pa And Lat (2 Views) dated 08/17/2019; Ches t Single View dated 08/15/2019; CHEST PA AND LAT 2 VIEW dated 09/30/2014 TECHNIQUE: PA and lateral views of the chest were obtained. FINDINGS: The lungs are hyperexpanded compatible with COPD. The heart is upper limit of normal in si ze. No fracture or aggressive bony process. IMPRESSION: COPD without acute process identified.
[2020-03-30 09:46] LABS: Absolute Lymphocytes (CBC) 2.2 K/uL (0.7-4.9); Basophils % 1.1 % (0-1.3); Hematocrit 39.1 % (36.0-45.0); Lymphocytes % 21.7 % (15.3-44.8); MPV 7.9 fL (7.6-11.3); RBC Red Blood Cell Count 4.51 M/uL (3.86-4.86)
[2020-03-30 09:55] LABS: Potassium 3.9 mmol/L (3.5-5.1)
--- OUTSIDE RECORDS SUMMARY | 2020-03-31 08:06 | XMS REPORT | Continuity of Care Document ---
:1950 Author Organization [employer] Care Team Providers Name Role Phone [employer] Unavailable Un available Problems Problem Status Onset [...] Bedtime, # 90 cap, 3 Refill(s), Pharmacy: [facility] #[id number] gabapentin 100 MG 100 mg = 1 Active Mis marie Oral Capsule cap, PO, 019 Neuro Bedtime, # 30 cap, 2 Refill(s), Pharmacy: [facility] #[id number] Amitriptyline 1 tab, PO, Active [facility] Hydrochloride 25 MG TID, 0 019 Neur o / Chlordiazepoxide Refill(s) 10 MG Oral Tablet [Limbitrol 25/10] Ibuprofen 500 mg, Active [facility] PO, QID, 0 019 Neuro Refill(s) Pramipexole 0.5 mg, Active [facility] PO, Daily, 019 Neuro 0 Refill(s) 200 ACTUAT 3 puff, Active [facility] Albuterol 0.09 PRN, 0 019 Neuro MG/ACTUAT / Refill(s) Ipratropium [place] 0.018 MG/ACTUAT Metered Dose Inhaler [Combivent] Allergies, [...] 09/19/2019 [facility] Respitory Rate 16 09/19/2019 [facility] Height 160.02 cm 09/19/2019 [facility] Weight 77.727 09/19/2019 [facility] BMI Calculated 30.35 09/19/2019 [facility] Systolic (mm Hg) 146 08/06/2019 [facility] Diastolic (mm Hg) 90 08/06/2019 [facility] Heart Rate 99 08/06/2019 [facility] Respitory Rate 16 08/06/2019 [facility] Height 160.02 cm 08/06/2019 [facility] Weight 82.273 08/06/2019 [facility] BMI Calculated 32.13 08/06/2019 [facility] Systolic (mm Hg) 144 06/25/2019 [facility] Diastolic (mm Hg) 68 06/25/2019 [facility] Heart Rate 109 06/25/2019 [facility] Respitory Rate 16 06/25/2019 [facility] Height 160.02 cm 06/25/2019 [facility] Weight 81.364 06/25/2019 [facility] BMI Calculated 31.77 06/25/2019 [facility] [...] Number For Provider Date Date Visit Outpatient [id number] NAOMI 08/12 Active [facility] LOPEZ Javier Outpatient [id number] Kvng 06/13 Active [facility] [place] MNA Outpatient [id number] Kvng 06/13 06/14 [facility] [place] Outpatient [id number] Kvng 06/25 Active [facility] [place] MNA Outpatient [id number] Kvng 06/25 06/26 [facility] [place] Outpatient [id number] Kvng 08/06 Active [facility] [place] MNA Outpatient [id number] Kvng 08/06 08/07 [facility] [place] Outpatient [id number] Kvng 09/19 Active [facility] [place] MNA Outpatient [id number] Kvng 09/19 09/20 [facility] [place] Outpatient [id number] Kvng 12/10 Active [facility] [place] MNA Ambulatory [id number] Kvgn 12/10 12/10 [facility] [place] Procedures Procedure Code Date Perfomer Comments Source Laminectomy [id number] [facility] Assessment and Plan No Data Provided for This Section Plan of Care No Data Provided for This Section Social History Social History Date Source Social History TypeResponse 08/12/2016 [facility] [place] Alcohol Never Employment/School 1 Smoking [...]
--- OUTSIDE RECORDS SUMMARY | 2020-03-31 08:07 | XMS REPORT | Continuity of Care Document ---
:1950 Author Organization [employer] Care Team Providers Name Role Phone Ludia Unavailable Un available Problems Problem Status Onset [...] Bedtime, # 90 cap, 3 Refill(s), Pharmacy: [facility] #[id number] gabapentin 100 MG 100 mg = 1 Active Mis marie Oral Capsule cap, PO, 019 Neuro Bedtime, # 30 cap, 2 Refill(s), Pharmacy: [facility] #[id number] Amitriptyline 1 tab, PO, Active [facility] Hydrochloride 25 MG TID, 0 019 Neur o / Chlordiazepoxide Refill(s) 10 MG Oral Tablet [Limbitrol 25/10] Ibuprofen 500 mg, Active [facility] PO, QID, 0 019 Neuro Refill(s) Pramipexole 0.5 mg, Active [facility] PO, Daily, 019 Neuro 0 Refill(s) 200 ACTUAT 3 puff, Active [facility] Albuterol 0.09 PRN, 0 019 Neuro MG/ACTUAT / Refill(s) Ipratropium [place] 0.018 MG/ACTUAT Metered Dose Inhaler [Combivent] Allergies, [...] 09/19/2019 [facility] Respitory Rate 16 09/[facility] 160.02 cm 09/19/2019 [facility] Weight 77.727 09/19/2019 [facility] BMI Calculated 30.35 09/19/2019 [facility] Systolic (mm Hg) 146 08/06/2019 [facility] Diastolic (mm Hg) 90 08/06/2019 [facility] Heart Rate 99 08/06/2019 [facility] Respitory Rate 16 08/06/2019 [facility] Height 160.02 cm 08/06/2019 [facility] Weight 82.273 08/06/2019 [facility] BMI Calculated 32.13 08/06/2019 [facility] Systolic (mm Hg) 144 06/25/2019 [facility] Diastolic (mm Hg) 68 06/25/2019 [facility] Heart Rate 109 06/25/2019 [facility] Respitory Rate 16 06/25/2019 [facility] Height 160.02 cm 06/25/2019 [facility] Weight 81.364 06/25/2019 [facility] BMI Calculated 31.77 06/25/2019 [facility] [...] Number For Provider Date Date Visit Outpatient [id number] NAOMI 08/12 Active [facility] LOPEZ Javier Outpatient [id number] Kvng 06/13 Active [facility] [place] MNA Outpatient [id number] Kvng 06/13 06/14 [facility] [place] Outpatient [id number] Kvng 06/25 Active [facility] [place] MNA Outpatient [id number] Kvng 06/25 06/26 [facility] [place] Outpatient [id number] Kvng 08/06 Active [facility] [place] MNA Outpatient [id number] Kvng 08/06 08/07 [facility] [place] Out[facility] [id number] Kvng 09/19 Active [facility] [place] MNA Outpatient [id number] Kvng 09/19 09/20 [facility] [place] Out[facility] [id number] Kvng 12/10 Active [facility] [place] MNA Ambulatory [id number] Kvng 12/10 12/10 [facility] [place] Procedures Procedure Code Date Perfomer Comments Source Laminectomy [id number] [facility] Assessment and Plan No Data Provided for This Section Plan of Care No Data Provided for This Section Social History Social History Date Source Social History TypeResponse 08/12/2016 [facility] Ne[place] o Alcohol Never Employment/School 1 Smoking [...]
[2020-03-31] MEDS ORDERED: Ringers Lactate 1,000 ML IV ONE (08:15)
[2020-03-31] MEDS ORDERED: CEFAZOLIN/SWI 1gm 1 GM/10 ML SYR ONE (08:15)
[2020-03-31] MEDS ORDERED: METHYLENE BLUE 0.5% 10 ML AMP ONE (08:40)
[2020-03-31] MEDS ORDERED: propofoL 200 MG/20 ML VIAL IV ONE (08:58)
[2020-03-31] MEDS ORDERED: ONDANSETRON 4 MG/2 ML VIAL ONE ×2 (08:59→12:30)
[2020-03-31] MEDS ORDERED: FENTANYL CITR 250 MCG/5 ML ONE (08:59)
[2020-03-31] MEDS ORDERED: MIDAZOLAM HCL 2 MG/2 ML INJ ONE (08:59)
[2020-03-31] MEDS ORDERED: ROCURONIUM 50 MG/5 ML VIAL IV ONE (08:59)
[2020-03-31] MEDS ORDERED: LIDOCAINE 2% MPF 5 ML VIAL ONE (08:59)
[2020-03-31] MEDS ORDERED: dexAMETHasone 10 MG/ML VIAL ONE (08:59)
--- NOTE | 2020-03-31 09:47 | RAD REPORT ---
EXAM DESCRIPTION: NM - Lymphoscintigraphy - 03/31/2020 9:40 am CLINICAL HISTORY: RT BREAST CA COMPARISON: No comparisons TECHNIQUE: Preoperative lymphoscintigraphy was performed. The patient was administered 4 periareolar injections using 0.1 millicuries technetium 99 M sulfur colloid. Injection time was 0905 hours IMPRESSION: Lymphoscintigraphy procedure as detailed.
[2020-03-31] MEDS ORDERED: EPHEDRINE SULF 50 MG/ML VIAL ONE (10:48)
[2020-03-31] MEDS: Ringers Lactate 1,000 ML IV ONE ×2 (10:54→10:57)
[2020-03-31] MEDS ORDERED: KETOROLAC 30 MG/ML INJ ONE (11:50)
[2020-03-31] MEDS: HYDROMORPHONE HCL 1 MG/ML INJ ONE ×2 (12:21→12:26)
[2020-03-31 12:45] VITALS: O2SAT 98
[2020-03-31 14:05] VITALS: TEMP 96.6
[2020-03-31 14:59] VITALS: BP 154/72
--- NOTE | 2020-03-31 21:07 | OP ---
Date of Procedure: 03/31/2020 Surgeon: Jose Sykes MD Car Whacker: ANNA MARIE Palaofx. Preoperative Diagnosis: Right breast cancer. Postoperative Diagnosis: Right breast cancer. Procedure: Right breast mastectomy and sentinel node biopsy. Estimated Blood Loss: Minimal. Specimens: [place] node, negative for metastatic disease and right breast margins free. Findings: As above. Anesthesia: General. Complications: None. Drains: RJ #10 flat x1. Disposition: The patient tolerated the procedure in stable condition, taken to Recovery in good gene ral condition. Description Of Procedure: Patient was brought to the OR and placed in supine position. General anes thesia was begun. Patient was prepped and draped in usual sterile fashion. Prior to that, patient w as injected with methylene blue around the nipple-areolar complex and breast was massaged and then th e patient was prepped and draped in usual sterile fashion. Then cutting device for the sentinel node was attempted to use, but we could not clearly identify the sentinel node because the patient had pr evious surgery on the breasts, I am sure the implants were disturbed because of that surgery. So at this time, I opted to go ahead and proceed with the mastectomy and we dissected tail of the breast an d looked for sentinel node with blue dye. Subsequently approximately 20 x 10 cm skin incision was ma de, subcutaneous tissues divided and then flaps created superiorly to the clavicle, inferiorly to the insertion of the rectus abdominis muscle, laterally to the anterior border of the latissimus dorsi, medially to the sternal edge. Then breast tissue off the pectoralis fascia was removed and then the tail of the breast was examined. There was a blue lymph node identified. This was sent separately a s the sentinel node and then the remainder of the axilla did not show any activity as far as other ly mph nodes were concerned nor were there any other blue lymph nodes identified. The breast was labele d appropriately and sentinel node was sent to Pathology. Frozen section, which was negative for meta static disease and margins were free. The entire wound irrigated, bleeding controlled with cautery, and then Bobby-Pederson drain #10 flat placed, secured with 3-0 nylon and 2-0 chromic and 3-0 chromic used to approximate the subcutaneous tissue and close the skin. Sterile dressing was applied. Patie nt was awakened and taken to Recovery in good general condition. Discharge Note: The patient will go Day Surgery and home when stable. Disposition: Home. Condition: Stable. Discharge Instructions: Resume home medications and diet. Activity as tolerated. No heavy lifting. Keep dressing clean and dry, sponge bathe only. Record RJ q.12, followup my office in 1 week. Macario ray for appointment. Ultrasound 1 tablet p.o. q.4 p.r.n. pain and Keflex 500 mg p.o. q.6. /JOVITA Voice ID: [id number] Report ID: [id number]
== END 2020-03-31 14:50 | disposition home or self-care (01) ==
LOC: OR 07:51 → EDSTATUS 10:00 → OR 14:50
PROVIDERS: ATTEND Surgery
PROC: 07B50ZX Excision of Right Axillary Lymphatic, Open Approach, Diagnostic (ICD-10-PCS; 2020-03-31)
PROC: 0HTT0ZZ Resection of Right Breast, Open Approach (ICD-10-PCS; principal; 2020-03-31 10:00)
DX: C50.911 Malignant neoplasm of unspecified site of right female breast (principal); Z17.0 Estrogen receptor positive status [ER+]; J44.9 Chronic obstructive pulmonary disease, unspecified; Z11.59 Encounter for screening for other viral diseases; Z88.6 Allergy status to analgesic agent
CPT/HCPCS: 19303; 38500; 38900; 93005; 85025; 80048; 36415; 88307; 88333; 71046; 78195; U0002; J2704; J2250; J3010; J1100; J1170; J0690; J7120 ×2; J2405 ×2; A9541

== ENCOUNTER 2020-12-07 08:27 | Day surgery (SDC) | payer OTHER ==
[2020-12-04 09:53] VITALS: BMI 30.4
--- NOTE | 2020-12-04 10:55 | RAD REPORT ---
EXAM DESCRIPTION: RAD - Chest Pa And Lat (2 Views) - 12/04/2020 10:32 am CLINICAL HISTORY: pre-op cath procedure Chest pain. COMPARISON: Chest Pa And Lat (2 Views) dated 03/30/2020; Abdomen 1 View (KUB) dated 08/18/2019; Chest Pa And Lat (2 Views) dated 08/17/2019; Chest Single View dated 08/15/2019 FINDINGS: The lungs are emphysematous but clear. The heart is mildly prominent in size. No displaced fractures. IMPRESSION: Mild diffuse COPD.
[2020-12-04 10:56] LABS: Absolute Lymphocytes (CBC) 1.7 K/uL (0.7-4.9); Basophils % 0.9 % (0-1.3); Hematocrit 38.7 % (36.0-45.0); Lymphocytes % 27.8 % (15.3-44.8); MPV 7.9 fL (7.6-11.3); RBC Red Blood Cell Count 4.37 M/uL (3.86-4.86)
[2020-12-04 10:59] LABS: Protime INR 0.97
[2020-12-04 13:11] LABS: Potassium 4.2 mmol/L (3.5-5.1)
--- NOTE | 2020-12-05 08:31 | EKG ---
Test Date: 2020-12-04 Test Time: 10:08:21 [employer] Press Set Up Operator: ALYSSA MEASUREMENT RESULTS: Intervals: Rate: 100 HI: 176 QRSD: 138 QT: 396 QTc: 510 [place]: P: 84 HI: 176 QRS: -35 T: 119 INTERPRETIVE STATEMENTS: Sinus rhythm with occasional premature ventricular complexes Possible Left atrial enlargement Left axis deviation Nonspecific intraventricular block T wave abnormality, consider lateral ischemia Abnormal ECG Compared to ECG 03/30/2020 08:38:55 Ventricular premature complex(es) now present T-wave abnormality now present Possible ischemia now present Sinus tachycardia no longer present Left bundle-branch block no longer present Electronically Signed On 12-05-20 08:29:17 JIGMAN by Dave Russell
[~2020-12-07 08:27] MED LIST: HEPA 1000U/500MLS 2,000 UNIT/1,000 ML BAG IV ONE; LIDOCAINE 1% MPF 30 ML VIAL ONE
[2020-12-07] MEDS ORDERED: NA CHLORIDE 0.9% 500 ML ONE (08:49)
[2020-12-07] MEDS ORDERED: FENTANYL CITR 100 MCG/2 ML ONE (09:13)
[2020-12-07] MEDS ORDERED: ATROPINE SULF 1 MG/10 ML SYR IV ONE (09:13)
[2020-12-07] MEDS ORDERED: MIDAZOLAM HCL 2 MG/2 ML INJ ONE ×2 (09:13→10:12)
[2020-12-07] MEDS ORDERED: METHYLPREDNISOLONE 125 MG INJ ONE (09:20)
[2020-12-07] MEDS ORDERED: METOPROLOL TARTRATE 5 MG/5 ML INJ IV ONE (09:32)
[2020-12-07 11:29] VITALS: O2SAT 96
[2020-12-07 12:30] VITALS: BP 157/71; TEMP 97.3
--- NOTE | 2020-12-07 13:41 | OP ---
Surgeon: Dave Russell MD Bead Inspector: Mr. Siddharth Schroeder. Indications For Procedure: The patient is a patient of Dr. Clark who came to see me because of brady ication, abnormal arterial Doppler. Procedure In Detail: Brought to the hoisting laborer today as an outpatient, prepped and draped in the routi ne sterile fashion. A 6-Scottish sheath was introduced into the right common femoral artery successful ly using the Seldinger technique. Angio-Seal was used to close the case. Abdominal angiogram with r unoff using a pigtail catheter 6-Scottish revealed normal renal, normal distal aorta, 40% right common femoral artery stenosis. She had 100% occlusion of her bilateral SFA with reconstitution above the k nees with good distal flow. Total conscious sedation was 45 minutes. Complications: None. Blood Loss: 5 cc. Postoperative Diagnosis: Severe peripheral arterial disease, 100% bilateral superficial femoral alexus ry. Plan for bilateral femoral-popliteal as an outpatient. I will make arrangement. The patient wi ll go home today after 2 hours of bedrest. She will have her CDs with her. LIAM/JOVITA Voice ID: [id number] Report ID: [id number]
== END 2020-12-07 12:25 | disposition home or self-care (01) ==
LOC: CCL 08:27
DX: I70.213 Atherosclerosis of native arteries of extremities with intermittent claudication, bilateral legs (principal); I70.92 Chronic total occlusion of artery of the extremities; I10 Essential (primary) hypertension; E78.5 Hyperlipidemia, unspecified; Z87.891 Personal history of nicotine dependence; Z85.41 Personal history of malignant neoplasm of cervix uteri; Z88.6 Allergy status to analgesic agent; Z88.8 Allergy status to other drugs, medicaments and biological substances; Z20.822 Contact with and (suspected) exposure to COVID-19
CPT/HCPCS: 93005; 85025; 80048; 36415; 85610; 85730; 71046; 36200; 75630; U0003; C1893; J2250 ×2; J3010; J7040; J1644; J2930

== ENCOUNTER 2021-11-01 06:32 | Day surgery (SDC) | payer OTHER ==
[2021-10-28 15:24] LABS: Absolute Lymphocytes (CBC) 2.2 K/uL (0.7-4.9); Hematocrit 42.9 % (36.0-45.0); MPV 6.9 fL (7.6-11.3); RBC Red Blood Cell Count 4.74 M/uL (3.86-4.86)
[2021-10-28 15:32] LABS: Potassium 4.4 mmol/L (3.5-5.1)
--- NOTE | 2021-10-28 15:34 | RAD REPORT ---
EXAM DESCRIPTION: RAD - Chest Pa And Lat (2 Views) - 10/28/2021 3:09 pm CLINICAL HISTORY: Pre Op pending heart cath and carotid angiogram Chest pain. COMPARISON: Chest Pa And Lat (2 Views) dated 12/04/2020; Chest Pa And Lat (2 Views) dated 03/30/2020; A bdomen 1 View (KUB) dated 08/18/2019; Chest Pa And Lat (2 Views) dated 08/17/2019 FINDINGS: The lungs are emphysematous but clear. The heart is upper limit of normal in size. No disp laced fractures. IMPRESSION: Mild COPD.
[2021-10-28 15:35] LABS: Protime INR 0.92
[2021-11-01] MEDS ORDERED: NA CHLORIDE 0.9% 500 ML ONE (06:48)
[2021-11-01] MEDS ORDERED: LIDOCAINE 1% 20 ML MDV ONE (07:03)
[2021-11-01] MEDS ORDERED: HEPA 1000U/500MLS 0 UNIT/0 ML BAG IV ONE (07:03)
[2021-11-01] MEDS ORDERED: FENTANYL CITR 100 MCG/2 ML ONE (07:09)
[2021-11-01] MEDS ORDERED: MIDAZOLAM HCL 2 MG/2 ML INJ ONE ×2 (07:10→07:44)
[2021-11-01] MEDS ORDERED: ATROPINE SULF 1 MG/10 ML SYR IV ONE (07:11)
[2021-11-01] MEDS ORDERED: NA CHLORIDE 0.9% 0 ML ONE (07:11)
[2021-11-01] MEDS ORDERED: NITROGLYCERIN/D5W 25 MG/250 ML BTL IV ONE (07:21)
[2021-11-01] MEDS ORDERED: DIPHENHYDRAMINE 50 MG/ML VIAL ONE (07:28)
[2021-11-01] MEDS ORDERED: METHYLPREDNISOLONE 125 MG INJ ONE (07:28)
[2021-11-01] MEDS ORDERED: HEPA 1000U/500MLS 1,000 UNIT/500 ML BAG IV ONE (07:51)
--- NOTE | 2021-11-01 08:28 | OP ---
Surgeon: Dave Russell MD Procedures Performed: Admitted on 11/01/2021 to the laborer cook house as an outpatient for selective bilatera l carotid angiogram, left heart catheterization, selective coronary arteriogram. Indication: CVD, abnormal carotid Doppler, and recent abnormal stress test, atypical chest pain. Procedure In Detail: The patient was prepped and draped in the routine sterile fashion. Given Verse d and fentanyl for sedation. She was also given 125 mg of Solu-Medrol for possible iodine allergy. A 6-Portuguese sheath introduced in the right common femoral artery successfully using the Seldinger tech nique and 10 cc of Xylocaine. A JL4 catheter was initially introduced and cannulated the left main. Left heart catheterization there showed 20% left main, 30% circumflex proximal, 30% ostial OM lesion , a 50% ramus. She was very left dominant. A JR4 catheter cannulated the right main, which was smal l and normal, nondominant. The JR4 also cannulated selectively the left common carotid artery, which shows an 80% stenosis in the left ICA, normal CCA, normal ECA. I could not cannulate the right comm on carotid with a JR4, so I used a 3DRC catheter, which cannulated that and that showed normal caroti d on the right side, normal common, normal ICA, and normal ECA. There were no complications. Anesthesia: Total conscious sedation was 45 minutes. Blood Loss: 5 mL. Postoperative Diagnoses: Moderate coronary artery disease, severe cerebrovascular disease on the lef t side. She will need a left carotid endarterectomy. She had an Angio-Seal in the groin on the right side. After angiography, there was normal. She will be at bedrest for 2 hours and then she will go home and I will make arrangements for followu pRomeo WHEELER/JOVITA Voice ID: [id number] Report ID: [id number]
[2021-11-01 10:12] VITALS: BP 145/70; O2SAT 95
== END 2021-11-01 10:00 | disposition home or self-care (01) ==
LOC: CCL 06:32
DX: I25.10 Atherosclerotic heart disease of native coronary artery without angina pectoris (principal); I65.22 Occlusion and stenosis of left carotid artery; I70.213 Atherosclerosis of native arteries of extremities with intermittent claudication, bilateral legs; I10 Essential (primary) hypertension; E78.2 Mixed hyperlipidemia; I44.7 Left bundle-branch block, unspecified; R09.89 Other specified symptoms and signs involving the circulatory and respiratory systems; J44.1 Chronic obstructive pulmonary disease with (acute) exacerbation; C53.9 Malignant neoplasm of cervix uteri, unspecified; Z88.6 Allergy status to analgesic agent; Z91.041 Radiographic dye allergy status; Z20.822 Contact with and (suspected) exposure to COVID-19
CPT/HCPCS: 85025; 80048; 36415; 85610; 85730; 71046; 93454; 36222; U0003; C1893; C1760; J2250; J3010; J7040; J1644; J2930; J0583; J1200

== ENCOUNTER 2021-11-24 07:44 | Day surgery (SDC) | payer OTHER ==
[2021-11-23 10:40] LABS: Absolute Lymphocytes (CBC) 1.3 K/uL (0.7-4.9); Hematocrit 37.4 % (36.0-45.0); Lymphocytes % 18.9 % (15.3-44.8); MPV 6.6 fL (7.6-11.3); RBC Red Blood Cell Count 4.13 M/uL (3.86-4.86)
[2021-11-23 10:51] LABS: Potassium 3.9 mmol/L (3.5-5.1)
[2021-11-24] MEDS ORDERED: Ringers Lactate 1,000 ML IV ONE (08:16)
[2021-11-24] MEDS ORDERED: NA CHLORIDE 0.9% 50 ML ONE (08:16)
[2021-11-24] MEDS ORDERED: CEFAZOLIN SODIUM 1 GM/VIAL ONE (08:16)
[2021-11-24] MEDS ORDERED: LIDOCAINE 1% MPF 30 ML VIAL ONE (08:17)
[2021-11-24] MEDS ORDERED: METHYLENE BLUE 0.5% 10 ML AMP ONE (08:17)
[2021-11-24] MEDS ORDERED: propofoL 200 MG/20 ML VIAL IV ONE (09:34)
[2021-11-24] MEDS ORDERED: MIDAZOLAM HCL 2 MG/2 ML INJ ONE (09:34)
[2021-11-24] MEDS ORDERED: FENTANYL CITR 100 MCG/2 ML ONE (09:34)
[2021-11-24] MEDS ORDERED: LIDOCAINE 2% MPF 5 ML VIAL ONE (09:34)
[2021-11-24] MEDS ORDERED: ONDANSETRON 4 MG/2 ML VIAL ONE (09:35)
[2021-11-24] MEDS ORDERED: dexAMETHasone 10 MG/ML VIAL ONE (10:17)
[2021-11-24] MEDS ORDERED: Mastisol Adhesive Liq ONE (10:20)
--- NOTE | 2021-11-24 10:22 | P.BOP ---
Preoperative diagnosis: left upper breast palpable mass, hx of right breast cancer Postoperative diagnosis: same Primary procedure: LEft breast lumpectomy Can Sterilizer: CHICA GRYA (DIRECT CARE STAFFER) Estimated blood loss: <10cc Specimen: mass Findings: palpable mass Anesthesia: General Transferred to: Recovery Room Condition: Good
[2021-11-24] MEDS ORDERED: MEPERIDINE HCL 25 MG/ML SYR ONE (10:42)
[2021-11-24 11:58] VITALS: BP 135/80; TEMP 97.6; O2SAT 93
--- NOTE | 2021-11-24 22:59 | OP ---
Date of Procedure: 11/24/2021 Surgeon: Evan Luciano MD Preoperative Diagnoses: Left upper breast palpable mass, history of right breast cancer. Postoperative Diagnosis: Left upper breast palpable mass, history of right breast cancer. Procedure: Left breast lumpectomy. Finding: Palpable mass. Anesthesia: General plus local. Indications: This is a case of a 71-year-old patient comes to us with a palpable left breast mass, i ncreasing in size, discomfort. She wants that excised. She has history of right breast cancer in e past for which she will have a resection of it. The mammogram and imaging were discussed with the patient. She understands the limitation may be multicystic mass. She wants that excised completely. The benefits, alternatives, and risks of excisional biopsy of a palpable left breast mass fully exp lained, which include, but not limited to infection, bleeding, damage to adjacent structures as compl ication, recurrence, [place], and . She also understands this may not relieve the symptoms. She francisco javier ht need more than one surgical intervention. She understood, signed a consent. The area of concern was marked by me and the patient in the holding room. Procedure In Detail: The patient was brought to the operating room, placed in supine position. Anes thesia was done without complication. The left breast was prepped and draped in sterile fashion. A time-out was called. We made an incision before injecting local anesthetic. We made an incision in the breast region to make sure we always have a track of it. After that, we palpated the mass, remov ed it with gross negative margins. The skin was cystic in nature. At least some component of it. C ultures were obtained of the fluid. The mass was completely excised. Area was irrigated. No other mass was palpated and then after hemostasis obtained, we proceeded to close the area with 2-0 chromic interrupted in subcuticular fashion and then Steri-Strips. Sponge count and instrument counts were correct. The patient tolerated the procedure well. Patient was sent to Recovery in stable condition . GABE/JOVITA Voice ID: [id number] Report ID: [id number]
--- NOTE | 2021-11-24 23:04 | DS ---
Date of Discharge: 11/24/2021 Diagnosis: Left upper breast palpable mass. Procedure: Left breast lumpectomy. Disposition: Home. Activity: As tolerated. No heavy lifting. Plan: Follow up in my office in 1 week. Call for appointment [phone]. Keep area dry for 48 hours, then may remove outer dressing and shower. Keep Steri-Strips intact. Medications: See orders. GABE/MODL Voice ID: [id number] Report ID: [id number]
== END 2021-11-24 11:53 | disposition home or self-care (01) ==
LOC: OR 07:44
PROVIDERS: ATTEND Surgery
PROC: 0HBU0ZX Excision of Left Breast, Open Approach, Diagnostic (ICD-10-PCS; 2021-11-24)
PROC: 0HBU0ZZ Excision of Left Breast, Open Approach (ICD-10-PCS; principal; 2021-11-24 09:30)
DX: N60.02 Solitary cyst of left breast (principal); Z20.822 Contact with and (suspected) exposure to COVID-19
CPT/HCPCS: 87070; 85025; 80048; 36415; 87205; 88305; 87075; 19301; U0003; J2704; J2250; J3010; J1100; J2175; J7120; J2405; J0690